=== PATIENT | male | born 1960 | race Caucasian/White ===

== ENCOUNTER 2020-05-22 11:08 | Inpatient (IN) | payer SELFPAY ==
--- NOTE | 2020-05-22 11:49 | RADIOLOGY REPORT (SQ) ---
EXAM DESCRIPTION: CHEST SINGLE VIEW IMAGES COMPLETED DATE/TIME: 05/22/2020 11:40 am REASON FOR STUDY: Shortness of breath COMPARISON: 10/15/2012. EXAM PARAMETERS: NUMBER OF VIEWS: One view. TECHNIQUE: Single frontal radiographic view of the chest acquired. RADIATION DOSE: NA LIMITATIONS: None. FINDINGS: LUNGS AND PLEURA: Developing infiltrate in the right lung. Left lung clear. MEDIASTINUM AND HILAR STRUCTURES: No masses. Contour normal. HEART AND VASCULAR STRUCTURES: Heart upper limits of normal in size. Normal vasculature. BONES: No acute findings. HARDWARE: None in the chest. OTHER: No other significant finding. IMPRESSION: DEVELOPING INFILTRATE IN THE RIGHT LUNG. TECHNICAL DOCUMENTATION: JOB ID: [id number] 2010 [employer]- All Rights Reserved Reading location - IP/workstation name: [email or web address]
[2020-05-22 12:03] LABS: ABSOLUTE BASOPHILS # (AUTO) 0.1 10^3/uL (0.0-0.2); ABSOLUTE EOSINOPHILS # (AUTO) 0.1 10^3/uL (0.0-0.6); ABSOLUTE LYMPHOCYTES (AUTO) 0.7 10^3/uL (0.5-4.7); ABSOLUTE MONOCYTES (AUTO) 0.6 10^3/uL (0.1-1.4); ABSOLUTE NEUT (AUTO) 5.7 10^3/uL (1.7-8.2); EOSINOPHILS % (AUTO) 1.6 % (0-6); HEMATOCRIT 32.1 % (37.9-51.0); HEMOGLOBIN 11.1 g/dL (13.5-17.0); MEAN CORPUSCULAR HEMOGLOBIN 29.1 pg (27.0-33.4); MEAN CORPUSCULAR HGB CONC 34.6 g/dL (32.0-36.0); MEAN CORPUSCULAR VOLUME 84 fl (80-97); MONOCYTES % (AUTO) 8.2 % (3-13); PLATELET COUNT 111 10^3/uL (150-450); RED BLOOD COUNT 3.83 10^6/uL (4.35-5.55); RED CELL DISTRIBUTION WIDTH 13.7 % (11.5-14.0); SEGMENTED NEUTROPHILS % (AUTO) 79.2 % (42-78); TOTAL CELLS COUNTED % (AUTO) 100 %; WHITE BLOOD COUNT 7.3 10^3/uL (4.0-10.5)
--- NOTE | 2020-05-22 12:22 | EKG REPORT ---
SEVERITY:- ABNORMAL ECG - SINUS RHYTHM ABNORMAL T, CONSIDER ISCHEMIA, DIFFUSE LEADS : Confirmed by: Norma Houser MD 22-May-2020 12:21:50
[2020-05-22 12:24] LABS: ALBUMIN 3.6 g/dL (3.5-5.0); ALKALINE PHOSPHATASE 60 U/L (38-126); ANION GAP 5 (5-19); ASPARTATE AMINO TRANSFERASE 22 U/L (17-59); BILIRUBIN,DIRECT 0.1 mg/dL (0.0-0.4); BILIRUBIN,TOTAL 0.7 mg/dL (0.2-1.3); BLOOD UREA NITROGEN 38 mg/dL (7-20); CALCIUM 8.4 mg/dL (8.4-10.2); CARBON DIOXIDE 28 mmol/L (22-30); CHLORIDE 97 mmol/L (98-107); GLUCOSE 98 mg/dL (75-110); POTASSIUM 4.7 mmol/L (3.6-5.0); TOTAL PROTEIN 6.5 g/dL (6.3-8.2)
[2020-05-22 13:33] LABS: ARTERIAL BLOOD BASE EXCESS -0.8 mmol/L; ARTERIAL BLOOD FIO2 2L; ARTERIAL BLOOD H2CO3 1.35 mmol/L (1.05-1.35); ARTERIAL BLOOD HCO3 24.9 mmol/L (20-24); ARTERIAL BLOOD O2 SATURATION 81.1 % (94-98); ARTERIAL BLOOD PCO2 44.9 mmHg (35-45); ARTERIAL BLOOD PH 7.36 (7.35-7.45); ARTERIAL BLOOD PO2 46.9 mmHg (80-100); ARTERIAL BLOOD TOTAL CO2 26.3 mmol/L (23-27)
[2020-05-22 13:59] LABS: APPEARANCE,URINE SLIGHTLY-CLOUDY; BILIRUBIN,URINE NEGATIVE (NEGATIVE); COLOR,URINE YELLOW; GLUCOSE, URINE NEGATIVE (NEGATIVE); KETONES,URINE NEGATIVE (NEGATIVE); LEUKOCYTE ESTERASE,URINE NEGATIVE (NEGATIVE); NITRITE,URINE NEGATIVE (NEGATIVE); PROTEIN,URINE >=500 mg/dL (NEGATIVE); URINE SPECIFIC GRAVITY 1.014; UROBILINOGEN,URINE NEGATIVE mg/dL (<2.0)
--- NOTE | 2020-05-22 15:42 | ER Document Report ---
ED General - General Chief Complaint: Shortness Of Breath Stated Complaint: SHORTNESS OF BREATH/HIP PAIN Time Seen by Provider: 05/22/20 15:07 Mode of Arrival: Ambulatory Information source: Patient Notes: This 59-year-old male presents to the emergency department with a complaint of shortness of breath and respiratory distress. Apparently EMS was called to the home because of worsening symptoms patient's O2 sat was noted to be 83% and he had increased work of breathing. He was placed on 3 L nasal cannula with improvement into the mid 90s. Patient also complains of right-sided sciatic pain which has been ongoing for a number of weeks. He also was noted to have a low-grade temperature of 99.9. Apparently he has had a history of shortness of breath for stated., Is not on home O2 does not have a history of CHF or COPD and has not been seeing a doctor for hydration in many years. Past medical history is significant for hypertension, diabetes mellitus, CAD with prior stent placement. He denies contact with known coronavirus positive individual. 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 HENT: Negative for sore throat. Eyes: Negative for visual changes. Cardiovascular: Negative for chest pain. Respiratory: + shortness of breath. Gastrointestinal: Negative for abdominal pain, vomiting or diarrhea. Genitourinary: Negative for dysuria. Musculoskeletal: see HPI Skin: Negative for rash. Neurological: Negative for headaches, weakness or numbness. 10 point ROS negative except as marked above and in HPI. Physical Exam - Vital signs Vitals: Temp 99.3 F 05/22/20 11:08 - Notes Notes: PHYSICAL EXAMINATION: Physical Exam: General: Well-nourished well-developed 59-year-old man, positive ncreased work to breathe. HEENT: NC/AT, pupils equal round and reactive to light, MM moist,nares clear, oropharynx clear, airway patent Neck: supple, no adenopathy, no masses. Good range of motion Lungs: Good air movement increased work to breathe, basilar coarse sounds. CVS: Regular rate and rhythm no murmur gallop or rub Abdomen: Soft, active, nontender, no masses, no hepatosplenomegaly Ext: No edema, clubbing or cyanosis. Neuro: Alert and responsive, moving all 4 extremities on command, cranial nerves intact, no focal findings Skin: Intact no open lesions, no rash PSYCH: Normal mood, normal affect. Course - Re-evaluation Re-evalutation: 05/22/20 16:45 I discussed the findings of the x-ray and also the labs with the patient and explained to him that he should stay in the hospital for treatment. Given his low oxygen level his cigarette smoking history is question whether he has chronic obstructive lung disease and will need possible home O2. Given his infiltrate is being treated for community acquired pneumonia. Rocephin and Zithromax are ordered. The patient was not febrile but his temperature was elevated to 99.3 - coronavirus test and negative influenza testing makes the infiltrate likely related to community-acquired pneumonia. The elevated creatinine may be chronic, however we have no prior values other than 2012. He is given IV fluids and close monitoring of the renal function will be maintained while he is hospitalized. He does not have a primary care doctor and some ou tpatient follow-up will be needed at the time of discharge. 05/22/20 16:47 Discussed the patient with the hospitalist service, Komal Chi nurse practitioner will admit the patient to the hospitalist service for further management. - Vital Signs Vital signs: Temp Pulse Resp BP Pulse Ox 98.2 F 92 20 139/66 H 99 05/23/20 03:25 05/23/20 03:25 05/23/20 03:25 05/23/20 03:25 05/23/20 03:25 - Laboratory Results Result Diagrams: 05/23/20 05:53 05/23/20 05:53 Laboratory Results Interpreted: 05/22/20 05/22/20 05/22/20 11:47 11:47 11:47 RBC 3.83 L Hgb 11.1 L Hct 32.1 L Plt Count 111 L Lymph % (Auto) 10.0 L Seg Neutrophils % 79.2 H D-Dimer 1.49 H ABG pO2 ABG HCO3 ABG O2 Saturation Sodium 130.2 L Chloride 97 L BUN 38 H Creatinine 2.28 H Est GFR ( Amer) 36 L Est GFR (MDRD) Non-Af 30 L NT-Pro-B Natriuret Pep Urine Protein Urine Blood 05/22/20 05/22/20 05/22/20 11:47 13:12 13:26 RBC Hgb Hct Plt Count Lymph % (Auto) Seg Neutrophils % D-Dimer ABG pO2 46.9 L ABG HCO3 24.9 H ABG O2 Saturation 81.1 L Sodium Chloride BUN Creatinine Est GFR ( Amer) Est GFR (MDRD) Non-Af NT-Pro-B Natriuret Pep 1600 H Urine Protein >=500 H Urine Blood MODERATE H 05/22/20 16:26 I have reviewed laboratory data and used this information for the treatment decisions regarding the patient. Critical Laboratory Results Reviewed: Yes - Elevated BUN/creatinine Attending or Supervising Physician who Reviewed Labs: JUANCARLOS VASQUEZ - Radiology Results Radiology Results Interpreted: 05/22/20 16:26 Chest X-Ray 05/22/20 11:12 IMPRESSION: DEVELOPING INFILTRATE IN THE RIGHT LUNG. Critical Radiology Results Reviewed: No Critical Results - EKG Interpretation by Or Rate: Normal - EKG interpreted by Dr. Vasquez: Normal sinus rhythm, rate 91, NV interval 76 ms QT interval 364 ms, normal axis, T wave inversion V5, V6, no ischemic findings, compared to EKG dated 10/2012, T wave inversions in V5 V6 are new. Interpretation Abnormal EKG Critical Care Note - Critical Care Note Total time excluding time spent on procedures (mins): 45 - Critical care time spent obtaining history from patient or surrogate, discussions with consultants, development of treatment plan with patient or surrogate, evaluation of patient's response to treatment, examination of patient, ordering and performing treatments and interventions, ordering and review of laboratory studies, re- evaluation of patient's condition, ordering and review of radiographic studies and review of old charts Discharge - Discharge Clinical Impression: JANETTE (acute kidney injury) Sciatica Qualifiers: Laterality: right Qualified Code(s): M54.31 - Sciatica, right side CAP (community acquired pneumonia) Qualifiers: Laterality: right Lung location: unspecified part of lung Qualified Code(s): J18.9 - Pneumonia, unspecified organism Condition: Good Disposition: ADMITTED INPATIENT Admitting Provider: Jessica (Hospitalist) Unit Admitted: Medical Floor
[2020-05-22] MEDS ORDERED: NORMAL SALINE 1000 ML 1,000 ML IV ONE (15:46)
[2020-05-22] MEDS ORDERED: LORAZEPAM INJ 2 MG/1 ML VIAL IV ONE (15:49)
[2020-05-22] MEDS ORDERED: HYDROMORPHONE HCL INJ/PF 2 MG/ML AMPULE IV ONE (15:50)
[2020-05-22] MEDS ORDERED: DEXAMETHASONE SOD PHOS INJ 10 MG/1 ML VIAL IV ONE (15:50)
[2020-05-22] MEDS ORDERED: AZITHROMYCIN 250 MG TABLET PO ONE (16:27)
[2020-05-22] MEDS ORDERED: CEFTRIAXONE INJ 1000 MG VIAL IV ONE (16:27)
[2020-05-22] MEDS ORDERED: IPRATROPIUM/ALBUTEROL 0.5-2.5 MG/3 ML AMPUL NEB ONE (16:28)
[2020-05-22] MEDS ORDERED: MAG HYDROX/AL HYDROX/SIMETH SUSP 30 ML UDCUP PO PRN (17:30)
[2020-05-22] MEDS ORDERED: FUROSEMIDE INJ/PF 40 MG/4 ML SDV IV ONE (17:30)
[2020-05-22] MEDS ORDERED: PROMETHAZINE HCL INJ 25 MG/1 ML VIAL IV PRN (17:30)
[2020-05-22] MEDS ORDERED: IPRATROPIUM/ALBUTEROL 0.5-2.5 MG/3 ML AMPUL NEB PRN (17:30)
[2020-05-22] MEDS ORDERED: ACETAMINOPHEN 325 MG TABLET PO PRN (17:30)
[2020-05-22] MEDS ORDERED: DEXTROSE 50%-WATER 25 GM/50 ML DISP.SYRIN IV PRN ×2 (17:35)
[2020-05-22] MEDS ORDERED: DEXTROSE 40% GEL 15 GM TUBE PO PRN ×2 (17:35)
[2020-05-22] MEDS ORDERED: GLUCAGON,HUMAN RECOMB 1 MG INJ IM PRN (17:35)
[2020-05-22] MEDS ORDERED: NICOTINE 21 MG/24 HR PATCH.TD24 TD ONE (18:15)
--- NOTE | 2020-05-22 18:20 | PDOC H&P ---
History of Present Illness Admission Date/PCP: 05/22/20 16:50 DAPHNIE BUSTAMANTE Patient complains of: right hip pain History of Present Illness: LIZETTE MUNIZ is a 59 year old male with a limited past medical history secondary to poor historian and poor healthcare utilization but from prior records known to have [place], cardiac cath with 1 stent, hypertension, diabetes mellitus, obesity, and tobacco dependence with continuous use who presented to the emergency department today via EMS with a complaint of right hip pain. Upon EMS arrival, they had found the patient hypoxic with an SPO2 of 83 on room air. Patient's reported that he had a sudden onset of shortness of breath and increased work of breathing today. On arrival to the emergency department, the patient denied all cold-like symptoms and stated that his current respiratory pattern was Chronic in nature and that his only complaint was right hip pain. Evaluation in the emergency department revealed low-grade temp of 99.3, mild tachycardia (HR 97), tachypnea (RR 24), and hypoxia on room air. CBC revealed hemoglobin 11.1, chemistry was notable for mild hyponatremia (130.2), acute renal insufficiency (creatinine 2.28, BUN 38), and urinalysis positive for blood and protein. ABG was notable for PaO2 of 46.9 while on 2 L/min via nasal cannula. Rapid Covid/influenza/RSV was negative. Chest x-ray showed a developing right lung opacity. Therefore, patient was provided 1 L normal saline, IV ceftriaxone and azithromycin for treatment of a community-acquired pneumonia. He was recommended for admission. The patient voiced interest in leaving AGAINST MEDICAL ADVICE and per nursing notes actually removed his IV and ambulated to the waiting room. He was encouraged to return to his room, and per nursing, agreed to stay. He was then medicated with IV Dilaudid and Ativan. Therefore at the time of my assessment, the patient was arousable to voice and tactile stimulation, able to confirm his name, place, and year but quickly would fall back to sleep and could not provide any further meaningful information. I did attempt to call his at the phone number listed in [employer] but there was no answer. Past Medical History Past Medical History: Health history limited as patient is currently sedated and unable to provide further information. Their was no answer at his home when attempted to call his . Cardiac Medical History: Reports: Myocardial Infarction, Hypertension Endocrine Medical History: Reports: Diabetes Mellitus Type 2, Obesity Musculoskeltal Medical History: Reports: Arthritis Psychiatric Medical History: Reports: Tobacco Dependency Past Surgical History Past Surgical History: Reports: Cardiac Catheterization, Coronary Stent Social History Information Source: Emergency Med Personnel, [facility] Records Lives with: Spouse/Significant other Smoking Status: Current Every Day Smoker Electronic Cigarette use?: No - Advance Directive Resuscitation Status: Full Code Family History Family History: Reviewed & Not Pertinent, Other - unable to obtain Parental Family History Reviewed: No - unable to obtain Children Family History Reviewed: Unknown Sibling(s) Family History Reviewed.: Unknown Medication/Allergy Home Medications: Albuterol Sulfate [Ventolin HFA] 2 puff IH Q4HP PRN #17 gm 10/15/12 Aspirin [Aspirin 81 mg Chewable Tablet] 81 mg PO DAILY 10/15/12 Insulin Glargine,Hum.rec.anlog [Lantus Insulin 100 Unit/mL] 20 unit SUBCUT QHS #10 ml 10/15/12 Lisinopril 5 mg PO DAILY #30 tablet 10/15/12 Metoprolol Tartrate [Lopressor 50 mg Tablet] 50 mg PO Q12H #60 tablet 10/15/12 Allergies/Adverse Reactions: No Known Allergies Allergy (Unverified 10/15/12 14:02) Review of Systems ROS unobtainable: Due to mental status Respiratory: PRESENT: dyspnea Musculoskeletal: PRESENT: other - right hip pain Physical Exam Vital Signs: Temp Pulse Resp BP Pulse Ox 99.3 F 92 21 H 104/90 H 97 05/22/20 11:23 05/22/20 11:23 05/22/20 13:01 05/22/20 13:01 05/22/20 13:01 Intake & Output 05/21/20 05/22/20 05/23/20 06:59 06:59 06:59 Intake Total 1000 Balance 1000 Weight 100.6 kg General appearance: PRESENT: mild distress, obese, well-developed, well- nourished Head exam: PRESENT: atraumatic, normocephalic Eye exam: PRESENT: conjunctiva pink, EOMI, PERRLA. ABSENT: scleral icterus Mouth exam: PRESENT: moist, tongue midline Neck exam: PRESENT: JVD. ABSENT: carotid bruit, lymphadenopathy, thyromegaly Respiratory exam: PRESENT: crackles - bibasilar, tachypnea, other - supplemental oxygen. ABSENT: rales, rhonchi, wheezes Cardiovascular exam: PRESENT: RRR, +S1, +S2. ABSENT: diastolic murmur, rubs, systolic murmur Pulses: PRESENT: normal dorsalis pedis pul Vascular exam: PRESENT: normal capillary refill GI/Abdominal exam: PRESENT: normal bowel sounds, soft. ABSENT: distended, guarding, mass, organolmegaly, rebound, tenderness Rectal exam: PRESENT: deferred Extremities exam: PRESENT: full ROM - moves all extremities spontaneously, +2 e yaw - pitting BLE. ABSENT: calf tenderness, clubbing, pedal edema Neurological exam: PRESENT: alert, oriented to person, oriented to place, oriented to time, oriented to situation, CN II-XII grossly intact, other - somnulent r/t recent medication administration. ABSENT: motor sensory deficit Skin exam: PRESENT: dry, intact, warm. ABSENT: cyanosis, rash Results Laboratory Results: 05/22/20 11:47 05/22/20 11:47 05/22/20 05/22/20 05/22/20 11:47 11:47 13:12 WBC 7.3 RBC 3.83 L Hgb 11.1 L Hct 32.1 L MCV 84 MCH 29.1 MCHC 34.6 RDW 13.7 Plt Count 111 L Seg Neutrophils % 79.2 H Carbonic Acid 1.35 HCO3/H2CO3 Ratio 18:1 ABG pH 7.36 ABG pCO2 44.9 ABG pO2 46.9 L ABG HCO3 24.9 H ABG O2 Saturation 81.1 L ABG Base Excess -0.8 FiO2 2L Sodium 130.2 L Potassium 4.7 Chloride 97 L Carbon Dioxide 28 Anion Gap 5 BUN 38 H Creatinine 2.28 H Est GFR ( Amer) 36 L Glucose 98 Calcium 8.4 Total Bilirubin 0.7 AST 22 Alkaline Phosphatase 60 Total Protein 6.5 Albumin 3.6 Urine Color Urine Appearance Urine pH Ur Specific [place] Urine Protein Urine Glucose (UA) Urine Ketones Urine Blood Urine Nitrite Ur Leukocyte Esterase Urine WBC (Auto) Urine RBC (Auto) 05/22/20 13:26 WBC RBC Hgb Hct MCV MCH MCHC RDW Plt Count Seg Neutrophils % Carbonic Acid HCO3/H2CO3 Ratio ABG pH ABG pCO2 ABG pO2 ABG HCO3 ABG O2 Saturation ABG Base Excess FiO2 Sodium Potassium Chloride Carbon Dioxide Anion Gap BUN Creatinine Est GFR ( Amer) Glucose Calcium Total Bilirubin AST Alkaline Phosphatase Total Protein Albumin Urine Color YELLOW Urine Appearance SLIGHTLY-CLOUDY Urine pH 5.0 Ur Specific [place] 1.014 Urine Protein >=500 H Urine Glucose (UA) NEGATIVE Urine Ketones NEGATIVE Urine Blood MODERATE H Urine Nitrite NEGATIVE Ur Leukocyte Esterase NEGATIVE Urine WBC (Auto) 2 Urine RBC (Auto) 16 Impressions: Chest X-Ray 05/22/20 11:12 IMPRESSION: DEVELOPING INFILTRATE IN THE RIGHT LUNG. Assessment and Plan - Diagnosis (1) CHF (congestive heart failure) Qualifiers: Heart failure type: unspecified Heart failure chronicity: acute Qualified Code(s): I50.9 - Heart failure, unspecified Is this a current diagnosis for this admission?: Yes Plan: Limited PMH; known to have had an [place] with cardiac cath and stent x1. Presented with respiratory distress, hypoxia, tachycardia, hypertension, tachyp keyonna, +3 pitting edema BLE, bilateral crackles, and JVD. Troponin 0.128 proBNP 1600 D.dimer elevated; can't have CTA r/t JANETTE. CXR shows developing right side opacity. Chest CT pending. EKG is sinus rhythm with t wave changes; no ST segment changes, heart block, or other acute/worrisome changes. Echocardiogram pending Patient is admitted to [facility] on continuous cardiac telemetry. Discussed case w/ Dr. Gonzáles. Will diurese with IV furosemide. Start Toprol XL Will need [place] vs ARB vs Entresto once renal function improves. Start daily aspirin and statin therapy. On full dose Lovenox secondary to elevated D-dimer and troponin pending further cardiac evaluation. Cardiac diet; fluid restricted 1200 mL daily. Daily weights, strict I&O's. Low threshold for cardiology consultation. (2) Acute respiratory failure with hypoxia Is this a current diagnosis for this admission?: Yes Plan: Secondary to CHF exacerbation. Less likely community acquired pneumonia. COVID negative. D. dimer is elevated, unfortunately, can not get CTA r/t renal function. Patient currently unable to participate in VQ scan. Will consider f/u imagining pending patient's mentation in AM and echo results. ABG shows hypoxia (paO2 46.9 on 2lpm). Echocardiogram pending CT Chest pending. Supplemental oxygen and CPAP as needed to maintain saturations >89% As needed Duonebs. Will treat w/ full dose Lovenox given patient's elevated d. dimer and troponin (once Head CT is completed). Avoid sedating medications in patient with hypoxia. Remaining management as above. (3) JANETTE (acute kidney injury) Is this a current diagnosis for this admission?: Yes Plan: Patient appears volume overloaded. Likely secondary to acute CHF exacerbation with decreased cardiac output. We will cautiously diurese with IV furosemide. Otherwise avoid nephrotoxic medications and renally dose were able. Follow-up chemistries. (4) Obesity (BMI 30-39.9) Is this a current diagnosis for this admission?: Yes Plan: Once alert, patient will be placed on consistent carb/cardiac diet. Dietary discretion and lifestyle modification will be encouraged. (5) Tobacco dependence Is this a current diagnosis for this admission?: Yes Plan: Nicotine replacement therapies provided. (6) Altered mental status Qualifiers: Altered mental status type: delirium Qualified Code(s): R41.0 - Disorientation, unspecified Is this a current diagnosis for this admission?: Yes Plan: Likely secondary to hypoxia and decreased cardiac output. Nursing reports that while patient was A&Ox4, he had an od affect, was forgetful, with bizarre behaviors and poor safety awareness. Evaluation and management of respiratory failure and CHF as above. Head CT pending. Supportive care. Fall precautions. - Time Time Spent with patient: 35 or more minutes Medications reviewed and adjusted accordingly: Yes Anticipated Discharge Disposition: Home, Self Care Anticipated Discharge Timeframe: TBD - Inpatient Certification Based on my medical assessment, after consideration of the patient's comorbidities, presenting symptoms, or acuity I expect that the services needed warrant INPATIENT care.: Yes I certify that my determination is in accordance with my understanding of Medicare's requirements for reasonable and necessary INPATIENT services [42 CFR 412.3e].: Yes Medical Necessity: Need Close Monitoring Due to Risk of Patient Decompensation, Need For Continuous Telemetry Monitoring, Risk of Complication if Not Cared For in Hospital
--- NOTE | 2020-05-22 18:21 | RADIOLOGY REPORT (SQ) ---
EXAM DESCRIPTION: CT HEAD WITHOUT IMAGES COMPLETED DATE/TIME: 05/22/2020 5:34 pm REASON FOR STUDY: ams COMPARISON: None. TECHNIQUE: Axial images acquired through the brain without intravenous contrast. Images reviewed wi th bone, brain and subdural windows. Additional sagittal and coronal reconstructions were generated. Images stored on PACS. All CT scanners at this facility use dose modulation, iterative reconstruction, and/or weight based d osing when appropriate to reduce radiation dose to as low as reasonably achievable (ALARA). [facility]: Dose Right [facility]: CareDose [facility]: Dose Right [facility]: Teradose 4D [facility]: [employer] RADIATION DOSE: CT Rad equipment meets quality standard of care and radiation dose reduction techniq ues were employed. CTDIvol: 48.8 mGy. DLP: 860 mGy-cm. mGy. LIMITATIONS: None. FINDINGS: VENTRICLES: Normal size and contour. CEREBRUM: No masses. No hemorrhage. No midline shift. No evidence for acute infarction. Normal gra y/white matter differentiation. No areas of low density in the white matter. CEREBELLUM: No masses. No hemorrhage. No alteration of density. No evidence for acute infarction. EXTRAAXIAL SPACES: No fluid collections. No masses. ORBITS AND GLOBE: No intra- or extraconal masses. Normal contour of globe without masses. CALVARIUM: No fracture. PARANASAL SINUSES: No fluid or mucosal thickening. SOFT TISSUES: No mass or hematoma. OTHER: No other significant finding. IMPRESSION: NORMAL BRAIN CT WITHOUT CONTRAST. EVIDENCE OF ACUTE STROKE: NO. COMMENT: Quality ID # [id number]: Final reports with documentation of one or more dose reduction techniques (e.g., Automated exposure control, adjustment of the mA and/or kV according to patient size, use of iterative reconstruction technique) TECHNICAL DOCUMENTATION: JOB ID: [id number] 2010 [employer]- All Rights Reserved Reading location - IP/workstation name: [email or web address]
--- NOTE | 2020-05-22 18:28 | RADIOLOGY REPORT (SQ) ---
EXAM DESCRIPTION: CT CHEST WITHOUT IMAGES COMPLETED DATE/TIME: 05/22/2020 5:34 pm REASON FOR STUDY: ams; hypoxia COMPARISON: Chest x-ray dated 05/22/2020. TECHNIQUE: CT scan performed of the chest without intravenous contrast. Images reviewed with lung, soft tissue and bone windows. Reconstructed coronal and sagittal MPR images reviewed. All images st ored on PACS. All CT scanners at this facility use dose modulation, iterative reconstruction, and/or weight based d osing when appropriate to reduce radiation dose to as low as reasonably achievable (ALARA). [facility]: Dose Right [facility]: CareDose [facility]: Dose Right [facility]: Teradose 4D [facility]: [employer] RADIATION DOSE: CT Rad equipment meets quality standard of care and radiation dose reduction techniq ues were employed. CTDIvol: 18.9 mGy. DLP: 688 mGy-cm. mGy. LIMITATIONS: No technical limitations. FINDINGS: LUNGS AND PLEURA: Extensive ground-glass opacities throughout both lungs. Small pleural e ffusions. HILAR AND MEDIASTINAL STRUCTURES: No identified masses or abnormal nodes. No obvious aneurysm. HEART AND VASCULAR STRUCTURES: No aneurysm. No pericardial effusion. UPPER ABDOMEN: No significant findings. Limited exam. THYROID AND OTHER SOFT TISSUES: No masses. No adenopathy. BONES: No significant finding. HARDWARE: None in the chest. OTHER: No other significant findings. IMPRESSION: EXTENSIVE GROUND-GLASS OPACITIES THROUGHOUT BOTH LUNGS CONCERNING FOR PNEUMONIA, POSSIBL Y COVID- 19. SMALL PLEURAL EFFUSIONS. TECHNICAL DOCUMENTATION: JOB ID: [id number] Quality ID # [id number]: Final reports with documentation of one or more dose reduction techniques (e.g., Au tomated exposure control, adjustment of the mA and/or kV according to patient size, use of iterative reconstruction technique) 2010 [employer]- All Rights Reserved Reading location - IP/workstation name: [email or web address]
[2020-05-22 18:58] LABS: BLOOD UREA NITROGEN 37 mg/dL (7-20); C-REACTIVE PROTEIN 30.9 mg/L (<10.0); CALCIUM 8.3 mg/dL (8.4-10.2); CREATINE KINASE 351 U/L (55-170); GLUCOSE 111 mg/dL (75-110); POTASSIUM 4.6 mmol/L (3.6-5.0)
[2020-05-22 19:01] LABS: CARBON DIOXIDE 30 mmol/L (22-30); CHLORIDE 99 mmol/L (98-107)
[2020-05-22 19:04] LABS: ANION GAP 3 (5-19)
[2020-05-22] MEDS ORDERED: ENOXAPARIN SODIUM INJ 100 MG/1 ML DISP.SYRIN SUBCUT SCH (22:00)
[2020-05-22] MEDS ORDERED: ATORVASTATIN CALCIUM 20 MG TABLET PO SCH (22:00)
[2020-05-22] MEDS: ASPIRIN 81 MG TABLET, CHEWABLE PO SCH (22:06)
[2020-05-22] MEDS: INSULIN LISPRO 100 UNIT/ML 3 ML VIAL SUBCUT SCH (22:07)
[2020-05-23 06:21] LABS: HEMATOCRIT 29.5 % (37.9-51.0); HEMOGLOBIN 10.2 g/dL (13.5-17.0); MEAN CORPUSCULAR HEMOGLOBIN 29.3 pg (27.0-33.4); MEAN CORPUSCULAR HGB CONC 34.5 g/dL (32.0-36.0); MEAN CORPUSCULAR VOLUME 85 fl (80-97); PLATELET COUNT 104 10^3/uL (150-450); RED BLOOD COUNT 3.47 10^6/uL (4.35-5.55); RED CELL DISTRIBUTION WIDTH 13.9 % (11.5-14.0)
[2020-05-23 06:58] LABS: ANION GAP 12 (5-19); BLOOD UREA NITROGEN 45 mg/dL (7-20); CALCIUM 8.5 mg/dL (8.4-10.2); CARBON DIOXIDE 21 mmol/L (22-30); CHLORIDE 101 mmol/L (98-107); CHOLESTEROL 111.97 mg/dL (0-200); GLUCOSE 250 mg/dL (75-110); POTASSIUM 4.7 mmol/L (3.6-5.0); TRIGLYCERIDES 62 mg/dL (<150)
[2020-05-23 07:09] LABS: DIRECT LDL 53 mg/dL (<100)
--- NOTE | 2020-05-23 08:37 | PDOC CONSULTATION ---
Consultation Consult Date: 05/23/20 Attending physician:: CHARLES BAJWA Provider Consulted: JOHANNY PEARSON Consult reason:: HF History of Present Illness Admission Date/PCP: 05/22/20 16:50 DAPHNIE BUSTAMANTE History of Present Illness: LIZETTE MUNIZ is a 59 year old male with history of coronary artery disease status post OH in 2006 treated with a stent to an unknown vessel at [facility], hypertension, diabetes, obesity and ongoing tobacco use with 2 packs/day for the last 30 to 40 years who is consulted to our service for evaluation of elevated troponin and suspected heart failure. EMS was initially called to his home due to hip pain however he was found to be hypoxic with a pulse ox of 83% on room air as well as increased work of breathing. In the emergency room his temperature was mildly elevated to 99.3 among other findings. His chest x-ray was concerning for a developing pneumonia and CT scan of the chest revealed extensive, bilateral ground glass appearance concerning for COVID-19 pneumonia as well as small pleural effusions. Of note, the patient tested negative for COVID-19. He also had mildly elevated cardiac troponins which are now downtrending and peaked at 0.319. His telemetry shows normal sinus rhythm. This morning he feels better and has no cardiovascular complaints. He is anxious to go home. Physical exam on 05/23/2020: GENERAL: Pleasant and conversational. Oriented x3 with normal mood. Not in acute distress. Well groomed and well developed. HEENT: Normocephalic, atraumatic. Pupils equal. Sclerae anicteric. Oropharynx moist. NECK: No JVD. No carotid bruits. LUNGS: Decreased breath sounds bilaterally, very faint Rales at bases bilaterally. Normal respiratory effort without the use of accessory muscles or intercostal retractions. CARDIOVASCULAR: Regular rate and rhythm, normal S1 and S2 without murmurs, rubs, or gallops. PMI not displaced. ABDOMEN: No masses or tenderness to palpation. No bruit. No splenomegaly or hepatomegaly. No abdominal aorta bruit noted. EXTREMITIES: No edema, no cyanosis, no clubbing. +2 pulses femoral and pedal pulses bilaterally. SKIN: No lesions or rashes. MUSCULOSKELETAL: No chest tenderness to palpation. NEUROLOGIC: Nonfocal. No gross sensory or motor deficits bilateral upper or lower extremities. Past Medical History Cardiac Medical History: Reports: Myocardial Infarction, Hypertension Endocrine Medical History: Reports: Diabetes Mellitus Type 2, Obesity Musculoskeltal Medical History: Reports: Arthritis Psychiatric Medical History: Reports: Tobacco Dependency Denies: Depression Past Surgical History Past Surgical History: Reports: Cardiac Catheterization, Coronary Stent Social History Lives with: Spouse/Significant other Smoking Status: Current Every Day Smoker Cigarettes Packs Per Day: 2 Electronic Cigarette use?: No Last Time Smoked: 05/22/2020 Frequency of Alcohol Use: Heavy Drugs: None - Advance Directive Resuscitation Status: Full Code Family History Family History: Reviewed & Not Pertinent, Other - unable to obtain Parental Family History Reviewed: Yes Children Family History Reviewed: Yes Sibling(s) Family History Reviewed.: Yes Medication/Allergy Home Medications: Albuterol Sulfate [Ventolin HFA] 2 puff IH Q4HP PRN #17 gm 10/15/12 Aspirin [Aspirin 81 mg Chewable Tablet] 81 mg PO DAILY 10/15/12 Insulin Glargine,Hum.rec.anlog [Lantus Insulin 100 Unit/mL] 20 unit SUBCUT QHS #10 ml 10/15/12 Lisinopril 5 mg PO DAILY #30 tablet 10/15/12 Metoprolol Tartrate [Lopressor 50 mg Tablet] 50 mg PO Q12H #60 tablet 10/15/12 Allergies/Adverse Reactions: No Known Allergies Allergy (Unverified 10/15/12 14:02) Physical Exam Vital Signs: Temp Pulse Resp BP Pulse Ox 98.2 F 92 20 139/66 H 99 05/23/20 03:25 05/23/20 03:25 05/23/20 03:25 05/23/20 03:25 05/23/20 03:25 Intake & Output 05/22/20 05/23/20 05/24/20 06:59 06:59 06:59 Intake Total 1000 Balance 1000 Weight 101.2 kg Results Laboratory Results: 05/23/20 05:53 05/23/20 05:53 05/22/20 05/22/20 05/22/20 11:47 11:47 13:12 WBC 7.3 RBC 3.83 L Hgb 11.1 L Hct 32.1 L MCV 84 MCH 29.1 MCHC 34.6 RDW 13.7 Plt Count 111 L Seg Neutrophils % 79.2 H Carbonic Acid 1.35 HCO3/H2CO3 Ratio 18:1 ABG pH 7.36 ABG pCO2 44.9 ABG pO2 46.9 L ABG HCO3 24.9 H ABG O2 Saturation 81.1 L ABG Base Excess -0.8 FiO2 2L Sodium 130.2 L Potassium 4.7 Chloride 97 L Carbon Dioxide 28 Anion Gap 5 BUN 38 H Creatinine 2.28 H Est GFR ( Amer) 36 L Glucose 98 Calcium 8.4 Ferritin Total Bilirubin 0.7 AST 22 Alkaline Phosphatase 60 C-Reactive Protein Total Protein 6.5 Albumin 3.6 Triglycerides Cholesterol LDL Cholesterol Direct VLDL Cholesterol HDL Cholesterol TSH Urine Color Urine Appearance Urine pH Ur Specific [place] Urine Protein Urine Glucose (UA) Urine Ketones Urine Blood Urine Nitrite Ur Leukocyte Esterase Urine WBC (Auto) Urine RBC (Auto) 05/22/20 05/22/20 05/23/20 13:26 18:08 05:53 WBC RBC Hgb Hct MCV MCH MCHC RDW Plt Count Seg Neutrophils % Carbonic Acid HCO3/H2CO3 Ratio ABG pH ABG pCO2 ABG pO2 ABG HCO3 ABG O2 Saturation ABG Base Excess FiO2 Sodium 132.4 L 133.6 L Potassium 4.6 4.7 Chloride 99 101 Carbon Dioxide 30 21 L Anion Gap 3 L 12 BUN 37 H 45 H Creatinine 2.29 H 2.13 H Est GFR ( Amer) 36 L 39 L Glucose 111 H 250 H Calcium 8.3 L 8.5 Ferritin 103.00 Total Bilirubin AST Alkaline Phosphatase C-Reactive Protein 30.9 H Total Protein Albumin Triglycerides 62 Cholesterol 111.97 LDL Cholesterol Direct 53 VLDL Cholesterol 12.0 HDL Cholesterol 45 TSH Urine Color YELLOW Urine Appearance SLIGHTLY-CLOUDY Urine pH 5.0 Ur Specific [place] 1.014 Urine Protein >=500 H Urine Glucose (UA) NEGATIVE Urine Ketones NEGATIVE Urine Blood MODERATE H Urine Nitrite NEGATIVE Ur Leukocyte Esterase NEGATIVE Urine WBC (Auto) 2 Urine RBC (Auto) 16 05/23/20 05/23/20 05:53 05:53 WBC 5.0 RBC 3.47 L Hgb 10.2 L Hct 29.5 L MCV 85 MCH 29.3 MCHC 34.5 RDW 13.9 Plt Count 104 L Seg Neutrophils % Carbonic Acid HCO3/H2CO3 Ratio ABG pH ABG pCO2 ABG pO2 ABG HCO3 ABG O2 Saturation ABG Base Excess FiO2 Sodium Potassium Chloride Carbon Dioxide Anion Gap BUN Creatinine Est GFR ( Amer) Glucose Calcium Ferritin Total Bilirubin AST Alkaline Phosphatase C-Reactive Protein Total Protein Albumin Triglycerides Cholesterol LDL Cholesterol Direct VLDL Cholesterol HDL Cholesterol TSH 0.39 L Urine Color Urine Appearance Urine pH Ur Specific [place] Urine Protein Urine Glucose (UA) Urine Ketones Urine Blood Urine Nitrite Ur Leukocyte Esterase Urine WBC (Auto) Urine RBC (Auto) 05/22/20 05/22/20 05/22/20 11:47 11:47 18:08 Creatine Kinase 351 H Troponin I 0.128 NT-Pro-B Natriuret Pep 1600 H 05/23/20 05/23/20 01:10 05:53 Creatine Kinase Troponin I 0.319 0.229 NT-Pro-B Natriuret Pep Impressions: Chest CT 05/22/20 00:00 IMPRESSION: EXTENSIVE GROUND-GLASS OPACITIES THROUGHOUT BOTH LUNGS CONCERNING FOR PNEUMONIA, POSSIBLY COVID- 19. SMALL PLEURAL EFFUSIONS. Head CT 05/22/20 00:00 IMPRESSION: NORMAL BRAIN CT WITHOUT CONTRAST. EVIDENCE OF ACUTE STROKE: NO. Chest X-Ray 05/22/20 11:12 IMPRESSION: DEVELOPING INFILTRATE IN THE RIGHT LUNG. 05/23/20 05:53 05/23/20 05:53 MCV 85 fl (80-97) 05/23/20 05:53 MCH 29.3 pg (27.0-33.4) 05/23/20 05:53 MCHC 34.5 g/dL (32.0-36.0) 05/23/20 05:53 RDW 13.9 % (11.5-14.0) 05/23/20 05:53 Seg Neutrophils % 79.2 % (42-78) H 05/22/20 11:47 Carbonic Acid 1.35 mmol/L (1.05-1.35) 05/22/20 13:12 HCO3/H2CO3 Ratio 18:1 05/22/20 13:12 ABG pH 7.36 (7.35-7.45) 05/22/20 13:12 ABG pCO2 44.9 mmHg (35-45) 05/22/20 13:12 ABG pO2 46.9 mmHg (80-100) L 05/22/20 13:12 ABG HCO3 24.9 mmol/L (20-24) H 05/22/20 13:12 ABG O2 Saturation 81.1 % (94-98) L 05/22/20 13:12 ABG Base Excess -0.8 mmol/L 05/22/20 13:12 FiO2 2L 05/22/20 13:12 Chloride 101 mmol/L (98-107) 05/23/20 05:53 Carbon Dioxide 21 mmol/L (22-30) L 05/23/20 05:53 Anion Gap 12 (5-19) 05/23/20 05:53 Est GFR ( Amer) 39 (>60) L 05/23/20 05:53 Glucose 250 mg/dL (75-110) H 05/23/20 05:53 Calcium 8.5 mg/dL (8.4-10.2) 05/23/20 05:53 Ferritin 103.00 ng/mL (17.9-464.0) 05/22/20 18:08 Total Bilirubin 0.7 mg/dL (0.2-1.3) 05/22/20 11:47 AST 22 U/L (17-59) 05/22/20 11:47 Alkaline Phosphatase 60 U/L (38-126) 05/22/20 11:47 C-Reactive Protein 30.9 mg/L (<10.0) H 05/22/20 18:08 Total Protein 6.5 g/dL (6.3-8.2) 05/22/20 11:47 Albumin 3.6 g/dL (3.5-5.0) 05/22/20 11:47 Triglycerides 62 mg/dL (<150) 05/23/20 05:53 Cholesterol 111.97 mg/dL (0-200) 05/23/20 05:53 LDL Cholesterol Direct 53 mg/dL (<100) 05/23/20 05:53 VLDL Cholesterol 12.0 mg/dL (10-31) 05/23/20 05:53 HDL Cholesterol 45 mg/dL (>40) 05/23/20 05:53 TSH 0.39 uIU/mL (0.47-4.68) L 05/23/20 05:53 Urine Color YELLOW 05/22/20 13:26 Urine Appearance SLIGHTLY-CLOUDY 05/22/20 13:26 Urine pH 5.0 (5.0-9.0) 05/22/20 13:26 Ur Specific [place] 1.014 05/22/20 13:26 Urine Protein >=500 mg/dL (NEGATIVE) H 05/22/20 13:26 Urine Glucose (UA) NEGATIVE mg/dL (NEGATIVE) 05/22/20 13:26 Urine Ketones NEGATIVE mg/dL (NEGATIVE) 05/22/20 13:26 Urine Blood MODERATE (NEGATIVE) H 05/22/20 13:26 Urine Nitrite NEGATIVE (NEGATIVE) 05/22/20 13:26 Ur Leukocyte Esterase NEGATIVE (NEGATIVE) 05/22/20 13:26 Urine WBC (Auto) 2 /HPF 05/22/20 13:26 Urine RBC (Auto) 16 /HPF 05/22/20 13:26 05/22/20 05/22/20 05/22/20 11:47 11:47 18:08 Creatine Kinase 351 H Troponin I 0.128 NT-Pro-B Natriuret Pep 1600 H 05/23/20 05/23/20 01:10 05:53 Creatine Kinase Troponin I 0.319 0.229 NT-Pro-B Natriuret Pep Current Medication List Generic Name Dose Route Start Last Admin Trade Name Freq PRN Reason Stop Dose Admin Acetaminophen 650 mg 05/22/20 17:30 Acetaminophen 325 Mg Tablet PO 06/21/20 17:29 Q4HP PRN FOR PAIN OR TEMP Al Hydrox/Mg Hydrox/Simethicone 30 ml 05/22/20 17:30 Mag Hydrox/Al Hydrox/Simeth Susp 30 Ml Udcup PO 06/21/20 17:29 Q6HP PRN HEARTBURN Albuterol/Ipratropium 3 ml 05/22/20 17:30 Ipratropium/Albuterol 0.5-2.5 Mg/3 Ml Ampul NEB 06/21/20 17:29 RTQ6HP PRN SHORTNESS OF BREATH Aspirin 81 mg 05/22/20 22:00 05/22/20 22:06 Aspirin 81 Mg Tablet, Chewable PO 06/21/20 21:59 81 mg QHS CHAUNCEY Administration Atorvastatin Calcium 20 mg 05/22/20 22:00 05/22/20 22:07 Atorvastatin Calcium 20 Mg Tablet PO 06/21/20 21:59 20 mg QHS CHAUNCEY Administration Dextrose 12.5 gm 05/22/20 17:35 Dextrose 50%-Water 25 Gm/50 Ml Disp.Syrin IV 06/21/20 17:34 PRN PRN FOR BG 50-69 IN ALERT PATIENT Protocol Dextrose 25 gm 05/22/20 17:35 Dextrose 50%-Water 25 Gm/50 Ml Disp.Syrin IV 06/21/20 17:34 PRN PRN PER PROTOCOL Protocol Docusate Sodium 100 mg 05/23/20 10:00 Docusate Sodium 100 Mg Capsule PO 06/22/20 09:59 DAILY [facility] Enoxaparin Sodium 100 mg 05/22/20 22:00 05/22/20 22:07 Enoxaparin Sodium Inj 100 Mg/1 Ml Disp.Syrin SUBCUT 06/21/20 21:59 Not Gi stephen Q12 [facility] Furosemide 20 mg 05/23/20 10:00 Furosemide Inj/Pf 20 Mg/2 Ml Sdv IV 06/22/20 09:59 BID CHAUNCEY Glucagon 1 mg 05/22/20 17:35 Glucagon,Human Recomb 1 Mg Inj IM 06/21/20 17:34 PRN PRN Evaluate for BG < 70 Protocol Glucose 15 gm 05/22/20 17:35 Dextrose 40% Gel 15 Gm Tube PO 06/21/20 17:34 PRN PRN FOR BG 50-69 IN ALERT PATIENT Protocol Glucose 30 gm 05/22/20 17:35 Dextrose 40% Gel 15 Gm Tube PO 06/21/20 17:34 PRN PRN FOR BG < 50 IN ALERT PATIENT Protocol Insulin Human Lispro 0 - 12 unit 05/22/20 22:00 05/22/20 22:07 Insulin Lispro 100 Unit/Ml 3 Ml Vial SUBCUT 06/21/20 21:59 2 unit ACHS [facility] Administration Protocol Metoprolol Succinate 25 mg 05/23/20 10:00 Metoprolol Succinate 25 Mg Tab.Sr.24h PO 06/22/20 09:59 DAILY [facility] Nicotine 1 each 05/23/20 10:00 Nicotine 21 Mg/24 Hr Patch.Td24 TD 06/22/20 09:59 DAILY [facility] Promethazine HCl 6.25 mg 05/22/20 17:30 Promethazine Hcl Inj 25 Mg/1 Ml Vial IV 06/21/20 17:29 Q4HP PRN FOR NAUSEA/VOMITING Discontinued Medications Generic Name Dose Route Start Last Admin Trade Name Freq PRN Reason Stop Dose Admin Albuterol/Ipratropium 9 ml 05/22/20 16:28 05/22/20 16:52 Ipratropium/Albuterol 0.5-2.5 Mg/3 Ml Ampul NEB 05/22/20 16:29 9 ml NOW ONE Administration Azithromycin 500 mg 05/22/20 16:27 05/22/20 16:52 Azithromycin 250 Mg Tablet PO 05/22/20 16:28 500 mg NOW ONE Administration Ceftriaxone Sodium 1,000 mg 05/22/20 16:27 05/22/20 16:52 Ceftriaxone Inj 1000 Mg Vial IV 05/22/20 16:28 1,000 mg IVBAG (ED) ONE Administration Dexamethasone Sodium Phosphate 10 mg 05/22/20 15:50 05/22/20 16:12 Dexamethasone Sod Phos Inj 10 Mg/1 Ml Vial IV 05/22/20 15:51 10 mg NOW ONE Administration Enoxaparin Sodium 30 mg 05/23/20 10:00 Enoxaparin Sodium Inj 30 Mg/0.3 Ml Disp.Syrin SUBCUT 06/22/20 09:59 DAILY [facility] Furosemide 40 mg 05/22/20 17:30 05/22/20 18:10 Furosemide Inj/Pf 40 Mg/4 Ml Sdv IV 05/22/20 17:31 40 mg NOW ONE Administration Hydromorphone HCl 0.5 mg 05/22/20 15:50 05/22/20 16:12 Hydromorphone Hcl Inj/Pf 2 Mg/Ml Ampule IV 05/22/20 15:51 0.5 mg NOW ONE Administration Sodium Chloride 1,000 mls @ 0 mls/hr 05/22/20 15:46 05/22/20 16:50 Nacl 0.9% 1000 Ml Iv Soln IV 05/22/20 15:47 Infused BOLUS ONE Infusion Wide Open Lorazepam 1 mg 05/22/20 15:49 05/22/20 16:11 Lorazepam Inj 2 Mg/1 Ml Vial IV 05/22/20 15:50 1 mg NOW ONE Administration Nicotine 1 each 05/22/20 18:15 05/22/20 18:10 Nicotine 21 Mg/24 Hr Patch.Td24 TD 05/22/20 18:16 Not Given NOW ONE Assessment & Plan - Diagnosis (1) CHF (congestive heart failure) Qualifiers: Heart failure type: unspecified Heart failure chronicity: acute Qualified Code(s): I50.9 - Heart failure, unspecified Is this a current diagnosis for this admission?: Yes Plan: 59-year-old male with known history of coronary artery disease however not known to have heart failure in the past. It is difficult to assess his fluid status however he does have mild lower extremity edema and very faint rales at both bases in the setting of mildly elevated troponins and elevated BNP. Recommendations: -Continue diuresis as per hospitalist team. -Continue with current medical management for now. -Restrict fluid intake to 1500 cc daily. -Low sodium diet, less than 1500 mg daily. -Strict intake and output. -Daily weights. -Daily BMP and magnesium and replace electrolytes as needed. -Agree with echocardiogram today. -Further recommendations pending results of echocardiogram. (2) Elevated troponin I level Plan: It is unclear whether his mildly elevated troponin is secondary to a type II OH versus an acute coronary syndrome although he denies ischemic symptoms. Ultimately he will need ischemic assessment preferably with left heart catheterization once his renal function improves. Recommendations: -Continue with current medical management. -Increase Lipitor to 80 mg daily. -Continue with cardiac telemetry. -Sublingual nitroglycerin as needed if the patient develops chest pain. (3) Coronary artery disease Qualifiers: Associated angina: without angina Is this a current diagnosis for this admission?: Yes Plan: The patient had an OH in 2006 and underwent stenting of an unknown vessel at [facility]. Recommendations: -Get old cardiology records from [facility]. -Continue with current medical management for now with close attention to his platelet count. (4) JANETTE (acute kidney injury) Is this a current diagnosis for this admission?: Yes Plan: Further management per hospitalist team. (5) CAP (community acquired pneumonia) Qualifiers: Laterality: right Lung location: unspecified part of lung Qualified Code(s): J18.9 - Pneumonia, unspecified organism Is this a current diagnosis for this admission?: Yes Plan: Further management per hospitalist team.
[2020-05-23] MEDS: INSULIN LISPRO 100 UNIT/ML 3 ML VIAL SUBCUT SCH ×4 (08:52→21:33)
[2020-05-23] MEDS ORDERED: NITROGLYCERIN 0.4 MG/TAB 25 TAB/BOTTLE SL PRN (09:30)
[2020-05-23 09:31] LABS: APPEARANCE,URINE CLEAR; BILIRUBIN,URINE NEGATIVE (NEGATIVE); COLOR,URINE YELLOW; GLUCOSE, URINE 50 mg/dL (NEGATIVE); KETONES,URINE NEGATIVE (NEGATIVE); LEUKOCYTE ESTERASE,URINE NEGATIVE (NEGATIVE); NITRITE,URINE NEGATIVE (NEGATIVE); PROTEIN,URINE 100 mg/dL (NEGATIVE); URINE SPECIFIC GRAVITY 1.012; UROBILINOGEN,URINE NEGATIVE mg/dL (<2.0)
[2020-05-23] MEDS ORDERED: METOPROLOL SUCCINATE 25 MG TAB.SR.24H PO SCH (10:00)
[2020-05-23] MEDS ORDERED: ENOXAPARIN SODIUM INJ 30 MG/0.3 ML DISP.SYRIN SUBCUT SCH (10:00)
[2020-05-23] MEDS: FUROSEMIDE INJ/PF 20 MG/2 ML SDV IV SCH ×2 (11:14→17:00)
[2020-05-23] MEDS: AZITHROMYCIN 250 MG TABLET PO SCH (11:14)
[2020-05-23] MEDS: DOCUSATE SODIUM 100 MG CAPSULE PO SCH (11:14)
[2020-05-23] MEDS: ENOXAPARIN SODIUM INJ 100 MG/1 ML DISP.SYRIN SUBCUT SCH ×2 (11:15→21:33)
[2020-05-23] MEDS: NICOTINE 21 MG/24 HR PATCH.TD24 TD SCH (11:15)
--- NOTE | 2020-05-23 13:28 | PDOC PROGRESS REPORT ---
Subjective Date:: 05/23/20 Subjective:: LIZETTE MUNIZ is a 59 year old male with a past medical history significant for MT, cardiac cath with 1 stent (2006), hypertension, diabetes mellitus, obesity, and tobacco dependence with continuous use who was admitted 05/22/20 for acute respiratory failure with hypoxia, CHF exacerbation, and elevated troponin. Patient was seen on morning rounds. He was found sitting up to the chair, comfortably, on supplemental oxygen by nasal cannula at 6 L/min. He reports th at he is feeling well today and asks multiple times to be discharged home. He denies fever, chills, chest pain, palpitations, dyspnea, orthopnea, cough, abdominal pain, nausea, vomiting, diarrhea. He also denies hip and back pain which were his presenting complaints on arrival to the emergency department. Reviewed his laboratory work and recommendations for continued cardiac evaluation. He has no questions or concerns at this time. No concerns per nursing. Reason For Visit: ACUTE RESPIRATORY W/HYPOXIA Physical Exam Vital Signs: Temp Pulse Resp BP Pulse Ox 98.2 F 92 20 139/66 H 99 05/23/20 03:25 05/23/20 03:25 05/23/20 03:25 05/23/20 03:25 05/23/20 03:25 Intake & Output 05/22/20 05/23/20 05/24/20 06:59 06:59 06:59 Intake Total 1000 Balance 1000 Weight 101.2 kg General appearance: PRESENT: no acute distress, obese, well-developed, well- nourished Head exam: PRESENT: atraumatic, normocephalic Eye exam: PRESENT: conjunctiva pink, EOMI, PERRLA. ABSENT: scleral icterus Ear exam: PRESENT: normal external ear exam Mouth exam: PRESENT: moist, tongue midline Respiratory exam: PRESENT: crackles - Bibasilar, symmetrical, unlabored, other - Supplemental oxygen by nasal cannula. ABSENT: rales, rhonchi, wheezes Cardiovascular exam: PRESENT: RRR. ABSENT: diastolic murmur, rubs, systolic murmur Vascular exam: PRESENT: normal capillary refill Extremities exam: PRESENT: full ROM, +1 edema - Tight pitting edema BLE. ABSENT: calf tenderness, clubbing, pedal edema Musculoskeletal exam: PRESENT: ambulatory Neurological exam: PRESENT: alert, awake, oriented to person, oriented to place, oriented to time, oriented to situation, CN II-XII grossly intact. ABSENT: motor sensory deficit Psychiatric exam: PRESENT: normal mood, unusual affect. ABSENT: homicidal ideation, suicidal ideation Skin exam: PRESENT: dry, intact, warm. ABSENT: cyanosis, rash Results Laboratory Results: 05/23/20 05:53 05/23/20 05:53 05/22/20 05/22/20 05/22/20 13:12 13:26 18:08 WBC RBC Hgb Hct MCV MCH MCHC RDW Plt Count Carbonic Acid 1.35 HCO3/H2CO3 Ratio 18:1 ABG pH 7.36 ABG pCO2 44.9 ABG pO2 46.9 L ABG HCO3 24.9 H ABG O2 Saturation 81.1 L ABG Base Excess -0.8 FiO2 2L Sodium 132.4 L Potassium 4.6 Chloride 99 Carbon Dioxide 30 Anion Gap 3 L BUN 37 H Creatinine 2.29 H Est GFR ( Amer) 36 L Glucose 111 H Calcium 8.3 L Ferritin 103.00 C-Reactive Protein 30.9 H Triglycerides Cholesterol LDL Cholesterol Direct VLDL Cholesterol HDL Cholesterol TSH Urine Color YELLOW Urine Appearance SLIGHTLY-CLOUDY Urine pH 5.0 Ur Specific [place] 1.014 Urine Protein >=500 H Urine Glucose (UA) NEGATIVE Urine Ketones NEGATIVE Urine Blood MODERATE H Urine Nitrite NEGATIVE Ur Leukocyte Esterase NEGATIVE Urine WBC (Auto) 2 Urine RBC (Auto) 16 05/23/20 05/23/20 05/23/20 05:53 05:53 05:53 WBC 5.0 RBC 3.47 L Hgb 10.2 L Hct 29.5 L MCV 85 MCH 29.3 MCHC 34.5 RDW 13.9 Plt Count 104 L Carbonic Acid HCO3/H2CO3 Ratio ABG pH ABG pCO2 ABG pO2 ABG HCO3 ABG O2 Saturation ABG Base Excess FiO2 Sodium 133.6 L Potassium 4.7 Chloride 101 Carbon Dioxide 21 L Anion Gap 12 BUN 45 H Creatinine 2.13 H Est GFR ( Amer) 39 L Glucose 250 H Calcium 8.5 Ferritin C-Reactive Protein Triglycerides 62 Cholesterol 111.97 LDL Cholesterol Direct 53 VLDL Cholesterol 12.0 HDL Cholesterol 45 TSH 0.39 L Urine Color Urine Appearance Urine pH Ur Specific [place] Urine Protein Urine Glucose (UA) Urine Ketones Urine Blood Urine Nitrite Ur Leukocyte Esterase Urine WBC (Auto) Urine RBC (Auto) 05/23/20 07:30 WBC RBC Hgb Hct MCV MCH MCHC RDW Plt Count Carbonic Acid HCO3/H2CO3 Ratio ABG pH ABG pCO2 ABG pO2 ABG HCO3 ABG O2 Saturation ABG Base Excess FiO2 Sodium Potassium Chloride Carbon Dioxide Anion Gap BUN Creatinine Est GFR ( Amer) Glucose Calcium Ferritin C-Reactive Protein Triglycerides Cholesterol LDL Cholesterol Direct VLDL Cholesterol HDL Cholesterol TSH Urine Color YELLOW Urine Appearance CLEAR Urine pH 5.0 Ur Specific [place] 1.012 Urine Protein 100 H Urine Glucose (UA) 50 H Urine Ketones NEGATIVE Urine Blood MODERATE H Urine Nitrite NEGATIVE Ur Leukocyte Esterase NEGATIVE Urine WBC (Auto) 1 Urine RBC (Auto) 7 05/22/20 05/22/20 05/22/20 11:47 11:47 18:08 Creatine Kinase 351 H Troponin I 0.128 NT-Pro-B Natriuret Pep 1600 H 05/23/20 05/23/20 01:10 05:53 Creatine Kinase Troponin I 0.319 0.229 NT-Pro-B Natriuret Pep Impressions: Chest CT 05/22/20 00:00 IMPRESSION: EXTENSIVE GROUND-GLASS OPACITIES THROUGHOUT BOTH LUNGS CONCERNING FOR PNEUMONIA, POSSIBLY COVID- 19. SMALL PLEURAL EFFUSIONS. Head CT 05/22/20 00:00 IMPRESSION: NORMAL BRAIN CT WITHOUT CONTRAST. EVIDENCE OF ACUTE STROKE: NO. Chest X-Ray 05/22/20 11:12 IMPRESSION: DEVELOPING INFILTRATE IN THE RIGHT LUNG. Assessment and Plan - Diagnosis (1) CHF (congestive heart failure) Qualifiers: Heart failure type: unspecified Heart failure chronicity: acute Qualified Code(s): I50.9 - Heart failure, unspecified Is this a current diagnosis for this admission?: Yes Plan: Limited PMH; known to have had an MT with cardiac cath and stent x1. Presented with respiratory distress, hypoxia, tachycardia, hypertension, tachypnea, +3 pitting edema BLE, bilateral crackles, and JVD. Troponin 0.128-> 0.319-> 0.229 proBNP 1600 D.dimer elevated; can't have CTA r/t JANETTE. CXR shows developing right side opacity. EKG is sinus rhythm with t wave changes; no ST segment changes, heart block, or other acute/worrisome changes. Echocardiogram pending Patient is admitted to [facility] on continuous cardiac telemetry. Discussed case w/ Dr. Burch. Cardiology is consulted; Dr. Fournier is now on. Appreciate his assistance. Continue to diurese with IV furosemide. Start Toprol XL Will need [place] vs ARB vs Entresto once renal function improves and Echo is available. Cardiac diet; fluid restricted 1500 mL daily. Daily weights, strict I&O's. (2) Elevated troponin I level Is this a current diagnosis for this admission?: Yes Plan: Unclear if demand mismatch ischemia in setting of CHF exacerbation and hypoxia or ACS event. Troponin 0.128-> 0.319-> 0.229 proBNP 1600 Cardiology is consulted. Start daily aspirin and statin therapy. On full dose Lovenox secondary to elevated D-dimer and troponin pending further cardiac evaluation. (3) Acute respiratory failure with hypoxia Is this a current diagnosis for this admission?: Yes Plan: Secondary to CHF exacerbation. Less likely community acquired pneumonia. COVID negative. D. dimer is elevated, unfortunately, can not get CTA r/t renal function. ABG shows hypoxia (paO2 46.9 on 2lpm). Echocardiogram pending CT Chest shows bilateral groundglass opacities throughout. Supplemental oxygen and CPAP as needed to maintain saturations >89% As needed Duonebs. Will treat w/ full dose Lovenox given patient's elevated d. dimer and troponin. Avoid sedating medications in patient with hypoxia. Remaining management as above. (4) JANETTE (acute kidney injury) Is this a current diagnosis for this admission?: Yes Plan: Patient appears volume overloaded. Likely secondary to acute CHF exacerbation with decreased cardiac output. Slight downward trend in creatinine; 2.28-> 2.29-> 2.13 Unknown baseline. Continue to cautiously diurese with IV furosemide. Otherwise avoid nephrotoxic medications and renally dose were able. Follow-up chemistries. (5) Obesity (BMI 30-39.9) Is this a current diagnosis for this admission?: Yes Plan: Once alert, patient will be placed on consistent carb/cardiac diet. Dietary discretion and lifestyle modification will be encouraged. (6) Tobacco dependence Is this a current diagnosis for this admission?: Yes Plan: Smoking cessation encouraged. Nicotine replacement therapies provided. (7) Altered mental status Qualifiers: Altered mental status type: delirium Qualified Code(s): R41.0 - Disorientation, unspecified Is this a current diagnosis for this admission?: Yes Plan: Resolved. Now A&Ox4 though w/ odd affect. Likely secondary to hypoxia and decreased cardiac output. Nursing reports that while patient was A&Ox4, he had an od affect, was forgetful, with bizarre behaviors and poor safety awareness. Evaluation and management of respiratory failure and CHF as above. Head CT negative for acute findings. Supportive care. Fall precautions. (8) Diabetes Qualifiers: Diabetes mellitus type: type 2 Diabetes mellitus long-term insulin use: without terminal gauger use Is this a current diagnosis for this admission?: Yes Plan: New diagnosis. A1C 7.7% Patient is placed on a consistent carb diet. Accu-Cheks before meals and at bedtime with Humalog for sliding scale coverage. Hypoglycemia protocol in place. Registered dietitian personal development educator consulted. - Time Time Spent with patient: 25-34 minutes Medications reviewed and adjusted accordingly: Yes Anticipated Discharge Disposition: Home, Self Care Anticipated Discharge Timeframe: within 48 hours
[2020-05-23] MEDS: GABAPENTIN 400 MG CAPSULE PO SCH (21:32)
[2020-05-23] MEDS: ATORVASTATIN CALCIUM 80 MG TABLET PO SCH (21:32)
[2020-05-23] MEDS: METOPROLOL SUCCINATE 25 MG TAB.SR.24H PO SCH (21:32)
[2020-05-23] MEDS: ASPIRIN 81 MG TABLET, CHEWABLE PO SCH (21:32)
--- NOTE | 2020-05-23 21:48 | XCELERA REPORT ---
[address] [address] Transthoracic Echocardiogram Report Name: LIZETTE MUNIZ Age: 59 yrs Gender: Male : 1960 Patient Status: Inpatient Patient Location: [address] [place] [address] Study Date: 05/23/2020 11:43 AM Height: 66 in Weight: 223 lb BSA: 2.1 m2 Procedure: A complete two-dimensional transthoracic echocardiogram was performed (2D, M-mode, spectral and color flow Doppler). The study was technically difficult with many images being suboptimal in quality. Reason For Study: new dx CHF Ordering Physician: CHARLES BAJWA Performed By: Karina Ashley Interpretation Summary The left ventricle is grossly normal size. Left ventricular systolic function is normal. The Ejection Fraction estimate is 55-60%. Doppler measurements suggest normal left ventricular diastolic function. No regional wall motion abnormalities noted. Mild RVE. Mild LAE. Mild MR, mild TR. Moderate pulmonary hypertension with pressures between 52 and 57 mmHg. No prior studies for comparison. Pulmonary pressures estimated between 57 and 62 mmHg. No prior studies for comparison. MMode/2D Measurements & Calculations RVDd: 4.0 cm LVIDd: 4.7 cm FS: 30.8 % Ao root diam: 3.0 cm IVSd: 1.3 cm LVIDs: 3.2 cm EDV(Teich): 100.7 ml Ao root area: 6.9 cm2 LVPWd: 1.2 cm ESV(Teich): 41.9 ml LA dimension: 4.0 cm EF(Teich): 58.4 % Doppler Measurements & Calculations MV E max rody: MV P1/2t max rody: Ao V2 max: LV V1 max P.1 cm/sec 137.1 cm/sec 133.3 cm/sec 4.6 mmHg MV A max rody: MV P1/2t: 59.8 msec Ao max P.1 mmHgLV V1 max: 117.4 cm/sec MVA(P1/2t): 3.7 cm2 106.9 cm/sec MV E/A: 1.2 MV dec slope: 671.3 cm/sec2 MV dec time: 0.20 sec PA V2 max: TR max rody: MV P1/2t-pr_phl: 100.9 cm/sec 343.4 cm/sec 59.8 msec PA max P.1 mmHgTR max P.2 mmHg Left Ventricle The left ventricle is grossly normal size. Left ventricular systolic function is normal. The Ejection Fraction estimate is 55-60%. Doppler measurements suggest normal left ventricular diastolic function. No regional wall motion abnormalities noted. Right Ventricle The right ventricle is mildly dilated. The right ventricular systolic function is normal. Atria The right atrium is normal in size. The left atrium is mildly dilated. There is no Doppler evidence for an interatrial shunt. Mitral Valve The mitral valve is normal in structure and function. There is no mitral valve stenosis. There is a mild amount of mitral regurgitation. Aortic Valve The aortic valve is normal in structure and functions normally. There is no aortic valve stenosis. No aortic regurgitation is present. Tricuspid Valve The tricuspid valve is not well visualized, but is grossly normal. There is a moderate to severe amount of tricuspid regurgitation. There is moderate pulmonary hypertension by echo. Pulmonary pressures estimated between 57 and 62 mmHg. Pulmonic Valve The pulmonic valve is not well visualized. There is no pulmonic valvular regurgitation. Great Vessels The inferior vena cava appeared normal and decreased < 50% with respiration (RAP 10-15 mmHg). Effusions There is no pericardial effusion. : CHARLES BAJWA Antonio
[2020-05-23] MEDS ORDERED: ATORVASTATIN CALCIUM 20 MG TABLET PO SCH (22:00)
[2020-05-24 05:21] LABS: HEMATOCRIT 29.9 % (37.9-51.0); HEMOGLOBIN 10.3 g/dL (13.5-17.0); MEAN CORPUSCULAR HEMOGLOBIN 29.3 pg (27.0-33.4); MEAN CORPUSCULAR HGB CONC 34.6 g/dL (32.0-36.0); MEAN CORPUSCULAR VOLUME 85 fl (80-97); PLATELET COUNT 100 10^3/uL (150-450); RED BLOOD COUNT 3.54 10^6/uL (4.35-5.55); RED CELL DISTRIBUTION WIDTH 13.7 % (11.5-14.0); WHITE BLOOD COUNT 6.1 10^3/uL (4.0-10.5)
[2020-05-24] MEDS: GABAPENTIN 400 MG CAPSULE PO SCH ×3 (05:35→21:31)
[2020-05-24 05:44] LABS: ANION GAP 8 (5-19); BLOOD UREA NITROGEN 51 mg/dL (7-20); CALCIUM 8.8 mg/dL (8.4-10.2); CARBON DIOXIDE 28 mmol/L (22-30); CHLORIDE 103 mmol/L (98-107); GLUCOSE 165 mg/dL (75-110); POTASSIUM 4.2 mmol/L (3.6-5.0)
--- NOTE | 2020-05-24 07:59 | PDOC PROGRESS REPORT ---
Subjective Date:: 05/24/20 Subjective:: LIZETTE MUNIZ is a 59 year old male with history of coronary artery disease status post VT in 2007 treated with a stent to an unknown vessel at [facility], hypertension, diabetes, obesity and ongoing tobacco use with 2 packs/day for the last 30 to 40 years who is consulted to our service for evaluation of elevated troponin and suspected heart failure. EMS was initially called to his home due to hip pain however he was found to be hypoxic with a pulse ox of 83% on room air as well as increased work of breathing. In the emergency room his temperature was mildly elevated to 99.3 among other findings. His chest x-ray was concerning for a developing pneumonia and CT scan of the chest revealed extensive, bilateral ground glass appearance concerning for COVID -19 pneumonia as well as small pleural effusions. Of note, the patient tested negative for COVID-19. He also had mildly elevated cardiac troponins which are now downtrending and peaked at 0.319. His telemetry shows normal sinus rhythm. This morning he feels better and has no cardiovascular complaints. He is anxious to go home. 05/24/2020: The patient had an uneventful night. His echocardiogram yesterday was most remarkable for normal ejection fraction, no gross regional wall motion abnorm alities and moderate to severe pulmonary hypertension with pressures estimated between 57 and 62 mmHg among other findings. Unfortunately his urinary output was not measured for the first 24 hours of his hospitalization however he is responding well to current doses of IV Lasix and is -399 cc in his net fluid balance. His electrolytes are within normal limits and his creatinine is slightly improved. He has no complaints this morning and specifically denies ischemic and heart failure symptoms. Unfortunately cardiac telemetry is nonfunctional currently on the fourth floor where he is admitted. Physical exam on 05/24/2020: GENERAL: Pleasant and conversational. Oriented x3 with normal mood. Not in acute distress. Well groomed and well developed. HEENT: Normocephalic, atraumatic. Pupils equal. Sclerae anicteric. Oropharynx moist. NECK: No JVD. No carotid bruits. LUNGS: Decreased breath sounds bilaterally, clear to auscultation bilaterally. Normal respiratory effort without the use of accessory muscles or intercostal retractions. CARDIOVASCULAR: Regular rate and rhythm, normal S1 and S2 without murmurs, rubs, or gallops. PMI not displaced. ABDOMEN: No masses or tenderness to palpation. No bruit. No splenomegaly or hepatomegaly. No abdominal aorta bruit noted. EXTREMITIES: No edema, no cyanosis, no clubbing. +2 pulses femoral and pedal pulses bilaterally. SKIN: No lesions or rashes. MUSCULOSKELETAL: No chest tenderness to palpation. NEUROLOGIC: Nonfocal. No gross sensory or motor deficits bilateral upper or lower extremities. Cardiac studies: Echocardiogram at [facility] on 05/23/2020: -EF 55 to 60%. -No gross regional wall motion abnormalities. -Mild RVE. -Mild LAE. -Mild MR, mild TR. -Moderate to severe pulmonary hypertension with pressures between 57 and 60 mmHg. -No prior studies for comparison. Reason For Visit: ACUTE RESPIRATORY W/HYPOXIA Physical Exam Vital Signs: Temp Pulse Resp BP Pulse Ox 97.9 F 73 18 131/63 H 94 05/24/20 00:00 05/24/20 02:00 05/24/20 00:00 05/24/20 00:00 05/24/20 00:00 Intake & Output 05/22/20 05/23/20 05/24/20 06:59 06:59 06:59 Intake Total 1000 876 Output Total 1275 Balance 1000 -399 Weight 101.2 kg 100.8 kg Results Laboratory Results: 05/24/20 04:42 05/24/20 04:42 05/23/20 05/23/20 05/23/20 05:53 05:53 07:30 WBC RBC Hgb Hct MCV MCH MCHC RDW Plt Count Sodium 133.6 L Potassium 4.7 Chloride 101 Carbon Dioxide 21 L Anion Gap 12 BUN 45 H Creatinine 2.13 H Est GFR ( Amer) 39 L Glucose 250 H Calcium 8.5 Magnesium Triglycerides 62 Cholesterol 111.97 LDL Cholesterol Direct 53 VLDL Cholesterol 12.0 HDL Cholesterol 45 TSH 0.39 L Urine Color YELLOW Urine Appearance CLEAR Urine pH 5.0 Ur Specific Eden 1.012 Urine Protein 100 H Urine Glucose (UA) 50 H Urine Ketones NEGATIVE Urine Blood MODERATE H Urine Nitrite NEGATIVE Ur Leukocyte Esterase NEGATIVE Urine WBC (Auto) 1 Urine RBC (Auto) 7 05/24/20 05/24/20 04:42 04:42 WBC 6.1 RBC 3.54 L Hgb 10.3 L Hct 29.9 L MCV 85 MCH 29.3 MCHC 34.6 RDW 13.7 Plt Count 100 L Sodium 139.3 Potassium 4.2 Chloride 103 Carbon Dioxide 28 Anion Gap 8 BUN 51 H Creatinine 1.77 H Est GFR ( Amer) 48 L Glucose 165 H Calcium 8.8 Magnesium 2.1 Triglycerides Cholesterol LDL Cholesterol Direct VLDL Cholesterol HDL Cholesterol TSH Urine Color Urine Appearance Urine pH Ur Specific Eden Urine Protein Urine Glucose (UA) Urine Ketones Urine Blood Urine Nitrite Ur Leukocyte Esterase Urine WBC (Auto) Urine RBC (Auto) 05/22/20 05/22/20 05/22/20 11:47 11:47 18:08 Creatine Kinase 351 H Troponin I 0.128 NT-Pro-B Natriuret Pep 1600 H 05/23/20 05/23/20 05/24/20 01:10 05:53 04:42 Creatine Kinase Troponin I 0.319 0.229 NT-Pro-B Natriuret Pep 2250 H Impressions: Chest CT 05/22/20 00:00 IMPRESSION: EXTENSIVE GROUND-GLASS OPACITIES THROUGHOUT BOTH LUNGS CONCERNING FOR PNEUMONIA, POSSIBLY COVID- 19. SMALL PLEURAL EFFUSIONS. Head CT 05/22/20 00:00 IMPRESSION: NORMAL BRAIN CT WITHOUT CONTRAST. EVIDENCE OF ACUTE STROKE: NO. Chest X-Ray 05/22/20 11:12 IMPRESSION: DEVELOPING INFILTRATE IN THE RIGHT LUNG. 05/24/20 04:42 05/24/20 04:42 MCV 85 fl (80-97) 05/24/20 04:42 MCH 29.3 pg (27.0-33.4) 05/24/20 04:42 MCHC 34.6 g/dL (32.0-36.0) 05/24/20 04:42 RDW 13.7 % (11.5-14.0) 05/24/20 04:42 Seg Neutrophils % 79.2 % (42-78) H 05/22/20 11:47 Carbonic Acid 1.35 mmol/L (1.05-1.35) 05/22/20 13:12 HCO3/H2CO3 Ratio 18:1 05/22/20 13:12 ABG pH 7.36 (7.35-7.45) 05/22/20 13:12 ABG pCO2 44.9 mmHg (35-45) 05/22/20 13:12 ABG pO2 46.9 mmHg (80-100) L 05/22/20 13:12 ABG HCO3 24.9 mmol/L (20-24) H 05/22/20 13:12 ABG O2 Saturation 81.1 % (94-98) L 05/22/20 13:12 ABG Base Excess -0.8 mmol/L 05/22/20 13:12 FiO2 2L 05/22/20 13:12 Chloride 103 mmol/L (98-107) 05/24/20 04:42 Carbon Dioxide 28 mmol/L (22-30) 05/24/20 04:42 Anion Gap 8 (5-19) 05/24/20 04:42 Est GFR ( Amer) 48 (>60) L 05/24/20 04:42 Glucose 165 mg/dL (75-110) H 05/24/20 04:42 Calcium 8.8 mg/dL (8.4-10.2) 05/24/20 04:42 Magnesium 2.1 mg/dL (1.6-2.3) 05/24/20 04:42 Ferritin 103.00 ng/mL (17.9-464.0) 05/22/20 18:08 Total Bilirubin 0.7 mg/dL (0.2-1.3) 05/22/20 11:47 AST 22 U/L (17-59) 05/22/20 11:47 Alkaline Phosphatase 60 U/L (38-126) 05/22/20 11:47 C-Reactive Protein 30.9 mg/L (<10.0) H 05/22/20 18:08 Total Protein 6.5 g/dL (6.3-8.2) 05/22/20 11:47 Albumin 3.6 g/dL (3.5-5.0) 05/22/20 11:47 Triglycerides 62 mg/dL (<150) 05/23/20 05:53 Cholesterol 111.97 mg/dL (0-200) 05/23/20 05:53 LDL Cholesterol Direct 53 mg/dL (<100) 05/23/20 05:53 VLDL Cholesterol 12.0 mg/dL (10-31) 05/23/20 05:53 HDL Cholesterol 45 mg/dL (>40) 05/23/20 05:53 TSH 0.39 uIU/mL (0.47-4.68) L 05/23/20 05:53 Urine Color YELLOW 05/23/20 07:30 Urine Appearance CLEAR 05/23/20 07:30 Urine pH 5.0 (5.0-9.0) 05/23/20 07:30 Ur Specific Eden 1.012 05/23/20 07:30 Urine Protein 100 mg/dL (NEGATIVE) H 05/23/20 07:30 Urine Glucose (UA) 50 mg/dL (NEGATIVE) H 05/23/20 07:30 Urine Ketones NEGATIVE mg/dL (NEGATIVE) 05/23/20 07:30 Urine Blood MODERATE (NEGATIVE) H 05/23/20 07:30 Urine Nitrite NEGATIVE (NEGATIVE) 05/23/20 07:30 Ur Leukocyte Esterase NEGATIVE (NEGATIVE) 05/23/20 07:30 Urine WBC (Auto) 1 /HPF 05/23/20 07:30 Urine RBC (Auto) 7 /HPF 05/23/20 07:30 05/22/20 05/22/20 05/22/20 11:47 11:47 18:08 Creatine Kinase 351 H Troponin I 0.128 NT-Pro-B Natriuret Pep 1600 H 05/23/20 05/23/20 05/24/20 01:10 05:53 04:42 Creatine Kinase Troponin I 0.319 0.229 NT-Pro-B Natriuret Pep 2250 H Current Medication List Generic Name Dose Route Start Last Admin Trade Name Freq PRN Reason Stop Dose Admin Acetaminophen 650 mg 05/22/20 17:30 Acetaminophen 325 Mg Tablet PO 06/21/20 17:29 Q4HP PRN FOR PAIN OR TEMP Al Hydrox/Mg Hydrox/Simethicone 30 ml 05/22/20 17:30 Mag Hydrox/Al Hydrox/Simeth Susp 30 Ml Udcup PO 06/21/20 17:29 Q6HP PRN HEARTBURN Albuterol/Ipratropium 3 ml 05/22/20 17:30 Ipratropium/Albuterol 0.5-2.5 Mg/3 Ml Ampul NEB 06/21/20 17:29 RTQ6HP PRN SHORTNESS OF BREATH Amlodipine Besylate 10 mg 05/24/20 10:00 Amlodipine Besylate 10 Mg Tablet PO 06/23/20 09:59 DAILY CHAUNCEY Aspirin 81 mg 05/22/20 22:00 05/23/20 21:32 Aspirin 81 Mg Tablet, Chewable PO 06/21/20 21:59 81 mg QHS CHAUNCEY Administration Atorvastatin Calcium 80 mg 05/23/20 22:00 05/23/20 21:32 Atorvastatin Calcium 80 Mg Tablet PO 06/22/20 21:59 80 mg QHS CHAUNCEY Administration Azithromycin 250 mg 05/23/20 10:00 05/23/20 11:14 Azithromycin 250 Mg Tablet PO 05/30/20 09:59 250 mg DAILY CHAUNCEY Administration Dextrose 12.5 gm 05/22/20 17:35 Dextrose 50%-Water 25 Gm/50 Ml Disp.Syrin IV 06/21/20 17:34 PRN PRN FOR BG 50-69 IN ALERT PATIENT Protocol Dextrose 25 gm 05/22/20 17:35 Dextrose 50%-Water 25 Gm/50 Ml Disp.Syrin IV 06/21/20 17:34 PRN PRN PER PROTOCOL Protocol Docusate Sodium 100 mg 05/23/20 10:00 05/23/20 11:14 Docusate Sodium 100 Mg Capsule PO 06/22/20 09:59 100 mg DAILY CHAUNCEY Administration Enoxaparin Sodium 100 mg 05/23/20 10:00 05/23/20 21:33 Enoxaparin Sodium Inj 100 Mg/1 Ml Disp.Syrin SUBCUT 06/21/20 09:59 100 mg Q12 CHAUNCEY Administration Furosemide 20 mg 05/23/20 10:00 05/23/20 17:00 Furosemide Inj/Pf 20 Mg/2 Ml Sdv IV 06/22/20 09:59 20 mg BID CHAUNCEY Administration Gabapentin 800 mg 05/23/20 22:00 05/24/20 05:35 Gabapentin 400 Mg Capsule PO 06/22/20 21:59 800 mg Q8 CHAUNCEY Administration Glucagon 1 mg 05/22/20 17:35 Glucagon,Human Recomb 1 Mg Inj IM 06/21/20 17:34 PRN PRN Evaluate for BG < 70 Protocol Glucose 15 gm 05/22/20 17:35 Dextrose 40% Gel 15 Gm Tube PO 06/21/20 17:34 PRN PRN FOR BG 50-69 IN ALERT PATIENT Protocol Glucose 30 gm 05/22/20 17:35 Dextrose 40% Gel 15 Gm Tube PO 06/21/20 17:34 PRN PRN FOR BG < 50 IN ALERT PATIENT Protocol Insulin Human Lispro 0 - 12 unit 05/22/20 22:00 05/23/20 21:33 Insulin Lispro 100 Unit/Ml 3 Ml Vial SUBCUT 06/21/20 21:59 2 unit ACHS CHAUNCEY Administration Protocol Metoprolol Succinate 25 mg 05/23/20 22:00 05/23/20 21:32 Metoprolol Succinate 25 Mg Tab.Sr.24h PO 06/22/20 21:59 25 mg Q12 CHAUNCEY Administration Nicotine 1 each 05/23/20 10:00 05/23/20 11:15 Nicotine 21 Mg/24 Hr Patch.Td24 TD 06/22/20 09:59 1 each DAILY CHAUNCEY Administration Nitroglycerin 1 tab 05/23/20 09:30 Nitroglycerin 0.4 Mg/Tab 25 Tab/Bottle SL 06/22/20 09:29 Q5MP PRN FOR CHEST PAIN Pentoxifylline 400 mg 05/24/20 08:00 Pentoxifylline 400 Mg Tablet.Sa PO 06/23/20 07:59 BIDACBS CHAUNCEY Promethazine HCl 6.25 mg 05/22/20 17:30 Promethazine Hcl Inj 25 Mg/1 Ml Vial IV 06/21/20 17:29 Q4HP PRN FOR NAUSEA/VOMITING Discontinued Medications Generic Name Dose Route Start Last Admin Trade Name Freq PRN Reason Stop Dose Admin Albuterol/Ipratropium 9 ml 05/22/20 16:28 05/22/20 16:52 Ipratropium/Albuterol 0.5-2.5 Mg/3 Ml Ampul NEB 05/22/20 16:29 9 ml NOW ONE Administration Atorvastatin Calcium 20 mg 05/22/20 22:00 05/22/20 22:07 Atorvastatin Calcium 20 Mg Tablet PO 06/21/20 21:59 20 mg QHS CHAUNCEY Administration Azithromycin 500 mg 05/22/20 16:27 05/22/20 16:52 Azithromycin 250 Mg Tablet PO 05/22/20 16:28 500 mg NOW ONE Administration Ceftriaxone Sodium 1,000 mg 05/22/20 16:27 05/22/20 16:52 Ceftriaxone Inj 1000 Mg Vial IV 05/22/20 16:28 1,000 mg IVBAG (ED) ONE Administration Dexamethasone Sodium Phosphate 10 mg 05/22/20 15:50 05/22/20 16:12 Dexamethasone Sod Phos Inj 10 Mg/1 Ml Vial IV 05/22/20 15:51 10 mg NOW ONE Administration Enoxaparin Sodium 30 mg 05/23/20 10:00 Enoxaparin Sodium Inj 30 Mg/0.3 Ml Disp.Syrin SUBCUT 06/22/20 09:59 DAILY CHAUNCEY Enoxaparin Sodium 100 mg 05/22/20 22:00 05/22/20 22:07 Enoxaparin Sodium Inj 100 Mg/1 Ml Disp.Syrin SUBCUT 06/21/20 21:59 Not Given Q12 CHAUNCEY Furosemide 40 mg 05/22/20 17:30 05/22/20 18:10 Furosemide Inj/Pf 40 Mg/4 Ml Sdv IV 05/22/20 17:31 40 mg NOW ONE Administration Hydromorphone HCl 0.5 mg 05/22/20 15:50 05/22/20 16:12 Hydromorphone Hcl Inj/Pf 2 Mg/Ml Ampule IV 05/22/20 15:51 0.5 mg NOW ONE Administration Sodium Chloride 1,000 mls @ 0 mls/hr 05/22/20 15:46 05/22/20 16:50 Nacl 0.9% 1000 Ml Iv Soln IV 05/22/20 15:47 Infused BOLUS ONE Infusion Wide Open Lorazepam 1 mg 05/22/20 15:49 05/22/20 16:11 Lorazepam Inj 2 Mg/1 Ml Vial IV 05/22/20 15:50 1 mg NOW ONE Administration Metoprolol Succinate 25 mg 05/23/20 10:00 05/23/20 11:14 Metoprolol Succinate 25 Mg Tab.Sr.24h PO 06/22/20 09:59 25 mg DAILY CHAUNCEY Administration Nicotine 1 each 05/22/20 18:15 05/22/20 18:10 Nicotine 21 Mg/24 Hr Patch.Td24 TD 05/22/20 18:16 Not Given NOW ONE Assessment & Plan - Diagnosis (1) Heart failure with preserved ejection fraction Qualifiers: Heart failure chronicity: acute Qualified Code(s): I50.31 - Acute diastolic (congestive) heart failure Is this a current diagnosis for this admission?: Yes Plan: 59-year-old male with known history of coronary artery disease however not known to have heart failure in the past. Clinically he looks much better than yesterday, with clear lungs and no lower extremity edema. He continues to deny ischemic symptoms. Luckily enough, his echocardiogram demonstrated a normal ejection fraction without gross regional wall motion abnormalities. Recommendations: -Continue diuresis as per hospitalist team. -Continue with current medical management for now. -Restrict fluid intake to 1500 cc daily. -Low sodium diet, less than 1500 mg daily. -Strict intake and output. -Daily weights. -Daily BMP and magnesium and replace electrolytes as needed. (2) Elevated troponin I level Is this a current diagnosis for this admission?: Yes Plan: It is unclear whether his mildly elevated troponin is secondary to a type II VT versus an acute coronary syndrome although he continues to deny ischemic symptoms. We have not received any of his prior cardiac records yet however they had been requested as of yesterday. At this point I believe both Lexiscan nuclear stress test versus left heart catheterization would be appropriate for further risk stratification prior to discharge however given his renal dysfunction we will continue to monitor for now and if, his creatinine continues to be above 1.5, we will then proceed with pharmacological nuclear stress test otherwise I will prefer to proceed with left heart catheterization. Of note, he has been anticoagulated with full dose Lovenox since admission however his platelets for downtrending slowly therefore, given the fact that the patient likely had a type II VT, it would be appropriate to discontinue full dose Lovenox for now if the patient does not have any other indication for the medication and, if so, he will probably need a different anticoagulant but I will defer this decision to the hospitalist team. Recommendations: -Continue with current medical management except for Lovenox as indicated above. -Continue with cardiac telemetry. -Sublingual nitroglycerin as needed if the patient develops chest pain. -Plan to proceed with pharmacological nuclear stress test on 05/26/2020. (3) Coronary artery disease Qualifiers: Associated angina: without angina Is this a current diagnosis for this admission?: Yes Plan: The patient had an VT in 2006 and underwent stenting of an unknown vessel at [facility], we are still awaiting prior records. The patient has remained hemodynamically stable and free of ischemic symptoms. The nursing staff was notified by myself this morning regarding the nonfunctional status of his telemetry. Recommendations: -Get old cardiology records from [facility]. -Continue with current medical management for now with close attention to his platelet count. (4) JANETTE (acute kidney injury) Is this a current diagnosis for this admission?: Yes Plan: Further management per hospitalist team. (5) CAP (community acquired pneumonia) Qualifiers: Laterality: right Lung location: unspecified part of lung Qualified Co de(s): J18.9 - Pneumonia, unspecified organism Is this a current diagnosis for this admission?: Yes Plan: Further management per hospitalist team.
[2020-05-24] MEDS: INSULIN LISPRO 100 UNIT/ML 3 ML VIAL SUBCUT SCH ×4 (08:09→21:30)
[2020-05-24] MEDS: PENTOXIFYLLINE 400 MG TABLET.SA PO SCH ×2 (08:09→16:51)
[2020-05-24] MEDS: AZITHROMYCIN 250 MG TABLET PO SCH (09:37)
[2020-05-24] MEDS: AMLODIPINE BESYLATE 10 MG TABLET PO SCH (09:37)
[2020-05-24] MEDS: METOPROLOL SUCCINATE 25 MG TAB.SR.24H PO SCH ×2 (09:38→21:31)
[2020-05-24] MEDS: DOCUSATE SODIUM 100 MG CAPSULE PO SCH (09:38)
[2020-05-24] MEDS: FUROSEMIDE INJ/PF 20 MG/2 ML SDV IV SCH ×2 (09:38→17:00)
[2020-05-24] MEDS: ENOXAPARIN SODIUM INJ 30 MG/0.3 ML DISP.SYRIN SUBCUT SCH (09:39)
[2020-05-24] MEDS: NICOTINE 21 MG/24 HR PATCH.TD24 TD SCH (09:39)
[2020-05-24] MEDS ORDERED: (PENDING PHARMACY ID) (Gabapentin [Neurontin] 800 MG Tablet) PO SCH (10:00)
--- NOTE | 2020-05-24 16:42 | PDOC PROGRESS REPORT ---
Subjective Date:: 05/24/20 Subjective:: LIZETTE MUNIZ is a 59 year old male with a past medical history significant for PA, cardiac cath with 1 stent (dant 2006), hypertension, diabetes mellitus, obesity, and tobacco dependence with continuous use who was admitted 05/22/20 for acute respiratory failure with hypoxia, CHF exacerbation, and elevated troponin. Patient seen on morning rounds. He is found sitting upright in chair, comfortably O2 sat 95% on 2 L nasal cannula. States that overall he is feeling well and is curious as to when he will be discharged home. He denies any fever, chills, chest pain, palpitations, shortness of breath, PND, orthopnea, cough abdominal pain, nausea, vomiting, diarrhea. Tells me that he has a 15-year-old at home and is wanting to be home from her symptoms. At this time he is scheduled for stress test on 05/26/2020. He is made aware of my understanding. Discussed with nursing no concerns or complaints today. Reason For Visit: ACUTE RESPIRATORY W/HYPOXIA Physical Exam Vital Signs: Temp Pulse Resp BP Pulse Ox 98.2 F 71 18 142/64 H 95 05/24/20 11:27 05/24/20 14:00 05/24/20 11:27 05/24/20 11:27 05/24/20 11:27 Intake & Output 05/23/20 05/24/20 05/25/20 06:59 06:59 06:59 Intake Total 5371 334 1442 Output Total 1275 Balance 1000 -399 1440 Weight 101.2 kg 100.8 kg 94 kg Additional comments: General appearance: PRESENT: no acute distress, obese, well-developed, well- nourished Head exam: PRESENT: atraumatic, normocephalic Eye exam: PRESENT: conjunctiva pink, EOMI, PERRLA. ABSENT: scleral icterus Ear exam: PRESENT: normal external ear exam Mouth exam: PRESENT: moist, tongue midline Respiratory exam: PRESENT: Clear lung sounds bilaterally, symmetrical and unlabored with Supplemental oxygen by nasal cannula. ABSENT: rales, rhonchi, wheezes Cardiovascular exam: PRESENT: RRR. ABSENT: diastolic murmur, rubs, systolic murmur Vascular exam: PRESENT: normal capillary refill Extremities exam: PRESENT: full ROM, no evidence of edema. ABSENT: calf tenderness, clubbing, pedal edema Musculoskeletal exam: PRESENT: ambulatory Neurological exam: PRESENT: alert, awake, oriented to person, oriented to place, oriented to time, oriented to situation, CN II-XII grossly intact. ABSENT: motor sensory deficit Psychiatric exam: PRESENT: normal mood, unusual affect. ABSENT: homicidal ideation, suicidal ideation Skin exam: PRESENT: dry, intact, warm. ABSENT: cyanosis, rash Results Laboratory Results: 05/24/20 04:42 05/24/20 04:42 05/24/20 05/24/20 04:42 04:42 WBC 6.1 RBC 3.54 L Hgb 10.3 L Hct 29.9 L MCV 85 MCH 29.3 MCHC 34.6 RDW 13.7 Plt Count 100 L Sodium 139.3 Potassium 4.2 Chloride 103 Carbon Dioxide 28 Anion Gap 8 BUN 51 H Creatinine 1.77 H Est GFR ( Amer) 48 L Glucose 165 H Calcium 8.8 Magnesium 2.1 05/22/20 05/22/20 05/22/20 11:47 11:47 18:08 Creatine Kinase 351 H Troponin I 0.128 NT-Pro-B Natriuret Pep 1600 H 05/23/20 05/23/20 05/24/20 01:10 05:53 04:42 Creatine Kinase Troponin I 0.319 0.229 NT-Pro-B Natriuret Pep 2250 H Impressions: Chest CT 05/22/20 00:00 IMPRESSION: EXTENSIVE GROUND-GLASS OPACITIES THROUGHOUT BOTH LUNGS CONCERNING FOR PNEUMONIA, POSSIBLY COVID- 19. SMALL PLEURAL EFFUSIONS. Head CT 05/22/20 00:00 IMPRESSION: NORMAL BRAIN CT WITHOUT CONTRAST. EVIDENCE OF ACUTE STROKE: NO. Chest X-Ray 05/22/20 11:12 IMPRESSION: DEVELOPING INFILTRATE IN THE RIGHT LUNG. Assessment and Plan - Diagnosis (1) Heart failure with preserved ejection fraction Qualifiers: Heart failure chronicity: acute Qualified Code(s): I50.31 - Acute diastolic (congestive) heart failure Is this a current diagnosis for this admission?: Yes Plan: On initial presentation: respiratory distress, hypoxia, tachycardia, hypertension, tachypnea, +3 pitting edema BLE, bilateral crackles, and JVD. - Lungs are clear to auscultation, without pitting edema today. - Reportedly improved from yesterday. Cardiology consulted, note reviewed in detail recommendations appreciated as discussed below. - Echocardiogram at [facility] on 05/23/2020: EF 55 to 60%. No gross regional wall motion abnormalities. Mild RVE. Mild LAE. Mild MR, mild TR. Moderate to severe pulmonary hypertension with pressures between 57 and 60 mmHg. No prior studies for comparison. - Continue IV diuresis - Restrict fluid intake, low-sodium diet, strict I's and O's, daily weights. - Daily BMP and magnesium and replace electrolytes as needed. Continue IV furosemide 20 mg twice daily. Continue Toprol XL (2) Elevated troponin I level Is this a current diagnosis for this admission?: Yes Plan: Denies ischemic symptoms. Unclear if demand mismatch ischemia in setting of CHF exacerbation and hypoxia or ACS event. - Troponin 0.128-> 0.319-> 0.229 - proBNP 1600 Cardiology is consulted, note reviewed in detail, recommendations as follows. - Recommends stress test versus left heart cath for further risk stratification prior to discharge. - Stress test scheduled 05/26 (in the lieu of creatinine greater than 1.5.) - Monitor creatinine, if <1.5 consider left heart cath - Increase Lipitor 80 mg daily Discontinued full dose Lovenox per cardiology recommendations - Platelets trending downward slowly Continue daily aspirin and statin therapy. (3) Coronary artery disease Qualifiers: Associated angina: without angina Is this a current diagnosis for this admission?: Yes Plan: History of PA in 2006, underwent stenting of unknown vessel at [facility]. - Records have been requested though not yet available were obtained knowledge. - Treatment as discussed above - Stress test scheduled 05/26. (4) Acute respiratory failure with hypoxia Is this a current diagnosis for this admission?: Yes Plan: Multifocal in nature, CHF exacerbation, less likely CAP. With significant improvement in O2 sats requirement with diuresis thus likely secondary to CHF exacerbation. - D. dimer is elevated, unfortunately, can not get CTA r/t renal function. (Lovenox therapy as discussed above) - Prior ABG shows hypoxia (paO2 46.9 on 2lpm). - CT Chest shows bilateral groundglass opacities throughout. Supplemental oxygen and CPAP as needed to maintain saturations >89% - Initially on 6L NC, has since weened to 2L NC with appropriate saturation. - Continue to wean as tolerated Cnt As needed Duonebs. Avoid sedating medications in patient with hypoxia. Remaining management as above. (5) JANETTE (acute kidney injury) Is this a current diagnosis for this admission?: Yes Plan: Initial presentation patient was volume overloaded with pitting edema and crackles, this has since improved patient is without pitting edema and with lungs CTA today. - Likely secondary to acute CHF exacerbation. - Slight downward trend in creatinine; 2.28-> 2.29-> 2.13 -> 1.77 today with diuresis - Unknown baseline. Continue to cautiously diurese with IV furosemide. Otherwise avoid nephrotoxic medications and renally dose were able. Follow-up chemistries. (6) Obesity (BMI 30-39.9) Is this a current diagnosis for this admission?: Yes Plan: Placed on consistent carb/cardiac diet. Dietary discretion and lifestyle modification encouraged. (7) Tobacco dependence Is this a current diagnosis for this admission?: Yes Plan: Smoking cessation encouraged. Nicotine replacement therapies provided. (8) Altered mental status Qualifiers: Altered mental status type: delirium Qualified Code(s): R41.0 - Disorientation, unspecified Is this a current diagnosis for this admission?: Yes Plan: This resolved under previous providers care. He is A&Ox4 on my evaluation. Head CT negative for acute findings. This improved with treatment as above for CHF, likely secondary to hypoxia, continue treatment as above. Supportive care. Fall precautions. (9) Diabetes Qualifiers: Diabetes mellitus type: type 2 Diabetes mellitus superintendent terminal insulin use: without senior care use Is this a current diagnosis for this admission?: Yes Plan: New diagnosis. A1C 7.7% Patient is placed on a consistent carb diet. Accu-Cheks before meals and at bedtime with Humalog for sliding scale coverage. Hypoglycemia protocol in place. Registered dietitian staff educator consulted. - Plan Summary Summary: Overall significant improvement in patient presentation. Continue with IV diuresis. Plan for stress test 05/26. Her creatinine if <1.5 consider left heart cath instead. Continue to wean supplemental oxygen. Likely discharge jhonny e following stress test. - Time Time Spent with patient: 25-34 minutes Smoking Cessation Education: 3 to 10 minutes Medications reviewed and adjusted accordingly: Yes Anticipated Discharge Disposition: Home, Self Care Anticipated Discharge Timeframe: within 48 hours
[2020-05-24] MEDS: ASPIRIN 81 MG TABLET, CHEWABLE PO SCH (21:31)
[2020-05-24] MEDS: ATORVASTATIN CALCIUM 80 MG TABLET PO SCH (21:31)
[2020-05-25] MEDS: GABAPENTIN 400 MG CAPSULE PO SCH ×3 (05:11→21:49)
[2020-05-25 07:09] LABS: HEMATOCRIT 30.9 % (37.9-51.0); HEMOGLOBIN 10.6 g/dL (13.5-17.0); MEAN CORPUSCULAR HEMOGLOBIN 29.1 pg (27.0-33.4); MEAN CORPUSCULAR HGB CONC 34.5 g/dL (32.0-36.0); MEAN CORPUSCULAR VOLUME 85 fl (80-97); PLATELET COUNT 112 10^3/uL (150-450); RED BLOOD COUNT 3.65 10^6/uL (4.35-5.55); RED CELL DISTRIBUTION WIDTH 13.7 % (11.5-14.0); WHITE BLOOD COUNT 4.6 10^3/uL (4.0-10.5)
[2020-05-25 07:33] LABS: ANION GAP 6 (5-19); BLOOD UREA NITROGEN 39 mg/dL (7-20); CALCIUM 8.7 mg/dL (8.4-10.2); CARBON DIOXIDE 31 mmol/L (22-30); CHLORIDE 102 mmol/L (98-107); GLUCOSE 199 mg/dL (75-110)
[2020-05-25] MEDS: PENTOXIFYLLINE 400 MG TABLET.SA PO SCH ×2 (07:47→17:35)
[2020-05-25] MEDS: INSULIN LISPRO 100 UNIT/ML 3 ML VIAL SUBCUT SCH ×4 (07:47→21:50)
[2020-05-25] MEDS: DOCUSATE SODIUM 100 MG CAPSULE PO SCH (09:28)
[2020-05-25] MEDS: FUROSEMIDE INJ/PF 20 MG/2 ML SDV IV SCH (09:30)
[2020-05-25] MEDS: ENOXAPARIN SODIUM INJ 30 MG/0.3 ML DISP.SYRIN SUBCUT SCH (09:30)
[2020-05-25] MEDS: AZITHROMYCIN 250 MG TABLET PO SCH (09:30)
[2020-05-25] MEDS: NICOTINE 21 MG/24 HR PATCH.TD24 TD SCH (09:30)
[2020-05-25] MEDS: AMLODIPINE BESYLATE 10 MG TABLET PO SCH (09:30)
[2020-05-25] MEDS: METOPROLOL SUCCINATE 25 MG TAB.SR.24H PO SCH ×2 (09:30→21:49)
[2020-05-25] MEDS ORDERED: METFORMIN HCL 500 MG TABLET PO SCH (10:00)
--- NOTE | 2020-05-25 10:02 | PDOC PROGRESS REPORT ---
Subjective Date:: 05/25/20 Subjective:: LIZETTE MUNIZ is a 59 year old male with history of coronary artery disease status post AR in 2006 treated with a stent to an unknown vessel at [facility], hypertension, diabetes, obesity and ongoing tobacco use with 2 packs/day for the last 30 to 40 years who is consulted to our service for evaluation of elevated troponin and suspected heart failure. EMS was initially called to his home due to hip pain however he was found to be hypoxic with a pulse ox of 83% on room air as well as increased work of breathing. In the emergency room his temperature was mildly elevated to 99.3 among other findings. His chest x-ray was concerning for a developing pneumonia and CT scan of the chest revealed extensive, bilateral ground glass appearance concerning for COVID -19 pneumonia as well as small pleural effusions. Of note, the patient tested negative for COVID-19. He also had mildly elevated cardiac troponins which are now downtrending and peaked at 0.319. His telemetry shows normal sinus rhythm. This morning he feels better and has no cardiovascular complaints. He is anxious to go home. 05/25/2020: The patient had an uneventful night. He had been doing well, he was weaned off of oxygen completely and currently does not have an oxygen requirement. Unfortunately his net fluid balance did not be calculated as his urinary output because the patient does not want to use the urinal however he appears euvolemic today. He has no complaints this morning and specifically denies ischemic and heart failure symptoms. His telemetry demonstrated normal sinus rhythm without ventricular dysrhythmias. Of note, we did receive records from [facility] demonstrating that the patient had an inferior STEMI on 10/04/2006. He was treated with stenting of his PLB. Physical exam on 05/25/2020: GENERAL: Pleasant and conversational. Oriented x3 with normal mood. Not in acute distress. Well groomed and well developed. HEENT: Normocephalic, atraumatic. Pupils equal. Sclerae anicteric. Oropharynx moist. NECK: No JVD. No carotid bruits. LUNGS: Decreased breath sounds bilaterally, clear to auscultation bilaterally. Normal respiratory effort without the use of accessory muscles or intercostal retractions. CARDIOVASCULAR: Regular rate and rhythm, normal S1 and S2 without murmurs, rubs, or gallops. PMI not displaced. ABDOMEN: No masses or tenderness to palpation. No bruit. No splenomegaly or hepatomegaly. No abdominal aorta bruit noted. EXTREMITIES: No edema, no cyanosis, no clubbing. +2 pulses femoral and pedal pulses bilaterally. SKIN: No lesions or rashes. MUSCULOSKELETAL: No chest tenderness to palpation. NEUROLOGIC: Nonfocal. No gross sensory or motor deficits bilateral upper or lower extremities. Cardiac studies: Echocardiogram at [facility] on 05/23/2020: -EF 55 to 60%. -No gross regional wall motion abnormalities. -Mild RVE. -Mild LAE. -Mild MR, mild TR. -Moderate to severe pulmonary hypertension with pressures between 57 and 60 mmHg. -No prior studies for comparison. [facility] on 10/04/2006 at [facility]: -Left main: No disease. -LAD: Mild luminal irregularities. -D1: Normal. -Left circumflex: No disease. -OM1: No disease. -OM2: No disease. -RCA: Patent. -PLV: 100% occluded--> Vision 3.0 mm x 12 mm SHERRY. -PDA: Patent. Reason For Visit: ACUTE RESPIRATORY W/HYPOXIA Physical Exam Vital Signs: Temp Pulse Resp BP Pulse Ox 98.2 F 71 14 158/66 H 97 05/25/20 00:00 05/25/20 02:00 05/25/20 00:00 05/24/20 20:00 05/25/20 04:00 Intake & Output 05/23/20 05/24/20 05/25/20 06:59 06:59 06:59 Intake Total 2949 471 2756 Output Total 1275 Balance 1000 -399 1676 Weight 101.2 kg 100.8 kg 94 kg Results Laboratory Results: 05/24/20 04:42 05/24/20 04:42 05/22/20 05/22/20 05/22/20 11:47 11:47 18:08 Creatine Kinase 351 H Troponin I 0.128 NT-Pro-B Natriuret Pep 1600 H 05/23/20 05/23/20 05/24/20 01:10 05:53 04:42 Creatine Kinase Troponin I 0.319 0.229 NT-Pro-B Natriuret Pep 2250 H Impressions: Chest CT 05/22/20 00:00 IMPRESSION: EXTENSIVE GROUND-GLASS OPACITIES THROUGHOUT BOTH LUNGS CONCERNING FOR PNEUMONIA, POSSIBLY COVID- 19. SMALL PLEURAL EFFUSIONS. Head CT 05/22/20 00:00 IMPRESSION: NORMAL BRAIN CT WITHOUT CONTRAST. EVIDENCE OF ACUTE STROKE: NO. Chest X-Ray 05/22/20 11:12 IMPRESSION: DEVELOPING INFILTRATE IN THE RIGHT LUNG. 05/25/20 05:58 05/25/20 05:58 MCV 85 fl (80-97) 05/25/20 05:58 MCH 29.1 pg (27.0-33.4) 05/25/20 05:58 MCHC 34.5 g/dL (32.0-36.0) 05/25/20 05:58 RDW 13.7 % (11.5-14.0) 05/25/20 05:58 Seg Neutrophils % 79.2 % (42-78) H 05/22/20 11:47 Carbonic Acid 1.35 mmol/L (1.05-1.35) 05/22/20 13:12 HCO3/H2CO3 Ratio 18:1 05/22/20 13:12 ABG pH 7.36 (7.35-7.45) 05/22/20 13:12 ABG pCO2 44.9 mmHg (35-45) 05/22/20 13:12 ABG pO2 46.9 mmHg (80-100) L 05/22/20 13:12 ABG HCO3 24.9 mmol/L (20-24) H 05/22/20 13:12 ABG O2 Saturation 81.1 % (94-98) L 05/22/20 13:12 ABG Base Excess -0.8 mmol/L 05/22/20 13:12 FiO2 2L 05/22/20 13:12 Chloride 102 mmol/L (98-107) 05/25/20 05:58 Carbon Dioxide 31 mmol/L (22-30) H 05/25/20 05:58 Anion Gap 6 (5-19) 05/25/20 05:58 Est GFR ( Amer) 46 (>60) L 05/25/20 05:58 Glucose 199 mg/dL (75-110) H 05/25/20 05:58 Calcium 8.7 mg/dL (8.4-10.2) 05/25/20 05:58 Magnesium 2.0 mg/dL (1.6-2.3) 05/25/20 05:58 Ferritin 103.00 ng/mL (17.9-464.0) 05/22/20 18:08 Total Bilirubin 0.7 mg/dL (0.2-1.3) 05/22/20 11:47 AST 22 U/L (17-59) 05/22/20 11:47 Alkaline Phosphatase 60 U/L (38-126) 05/22/20 11:47 C-Reactive Protein 30.9 mg/L (<10.0) H 05/22/20 18:08 Total Protein 6.5 g/dL (6.3-8.2) 05/22/20 11:47 Albumin 3.6 g/dL (3.5-5.0) 05/22/20 11:47 Triglycerides 62 mg/dL (<150) 05/23/20 05:53 Cholesterol 111.97 mg/dL (0-200) 05/23/20 05:53 LDL Cholesterol Direct 53 mg/dL (<100) 05/23/20 05:53 VLDL Cholesterol 12.0 mg/dL (10-31) 05/23/20 05:53 HDL Cholesterol 45 mg/dL (>40) 05/23/20 05:53 TSH 0.39 uIU/mL (0.47-4.68) L 05/23/20 05:53 Urine Color YELLOW 05/23/20 07:30 Urine Appearance CLEAR 05/23/20 07:30 Urine pH 5.0 (5.0-9.0) 05/23/20 07:30 Ur Specific [place] 1.012 05/23/20 07:30 Urine Protein 100 mg/dL (NEGATIVE) H 05/23/20 07:30 Urine Glucose (UA) 50 mg/dL (NEGATIVE) H 05/23/20 07:30 Urine Ketones NEGATIVE mg/dL (NEGATIVE) 05/23/20 07:30 Urine Blood MODERATE (NEGATIVE) H 05/23/20 07:30 Urine Nitrite NEGATIVE (NEGATIVE) 05/23/20 07:30 Ur Leukocyte Esterase NEGATIVE (NEGATIVE) 05/23/20 07:30 Urine WBC (Auto) 1 /HPF 05/23/20 07:30 Urine RBC (Auto) 7 /HPF 05/23/20 07:30 05/22/20 05/22/20 05/22/20 11:47 11:47 18:08 Creatine Kinase 351 H Troponin I 0.128 NT-Pro-B Natriuret Pep 1600 H 05/23/20 05/23/20 05/24/20 01:10 05:53 04:42 Creatine Kinase Troponin I 0.319 0.229 NT-Pro-B Natriuret Pep 2250 H Current Medication List Generic Name Dose Route Start Last Admin Trade Name Freq PRN Reason Stop Dose Admin Acetaminophen 650 mg 05/22/20 17:30 Acetaminophen 325 Mg Tablet PO 06/21/20 17:29 Q4HP PRN FOR PAIN OR TEMP Al Hydrox/Mg Hydrox/Simethicone 30 ml 05/22/20 17:30 Mag Hydrox/Al Hydrox/Simeth Susp 30 Ml Udcup PO 06/21/20 17:29 Q6HP PRN HEARTBURN Albuterol/Ipratropium 3 ml 05/22/20 17:30 Ipratropium/Albuterol 0.5-2.5 Mg/3 Ml Ampul NEB 06/21/20 17:29 RTQ6HP PRN SHORTNESS OF BREATH Amlodipine Besylate 10 mg 05/24/20 10:00 05/25/20 09:30 Amlodipine Besylate 10 Mg Tablet PO 06/23/20 09:59 10 mg DAILY CHAUNCEY Administration Aspirin 81 mg 05/22/20 22:00 05/24/20 21:31 Aspirin 81 Mg Tablet, Chewable PO 06/21/20 21:59 81 mg QHS CHAUNCEY Administration Atorvastatin Calcium 80 mg 05/23/20 22:00 05/24/20 21:31 Atorvastatin Calcium 80 Mg Tablet PO 06/22/20 21:59 80 mg QHS CHAUNCEY Administration Azithromycin 250 mg 05/23/20 10:00 05/25/20 09:30 Azithromycin 250 Mg Tablet PO 05/30/20 09:59 250 mg DAILY CHAUNCEY Administration Dextrose 12.5 gm 05/22/20 17:35 Dextrose 50%-Water 25 Gm/50 Ml Disp.Syrin IV 06/21/20 17:34 PRN PRN FOR BG 50-69 IN ALERT PATIENT Protocol Dextrose 25 gm 05/22/20 17:35 Dextrose 50%-Water 25 Gm/50 Ml Disp.Syrin IV 06/21/20 17:34 PRN PRN PER PROTOCOL Protocol Docusate Sodium 100 mg 05/23/20 10:00 05/25/20 09:28 Docusate Sodium 100 Mg Capsule PO 06/22/20 09:59 Not Given DAILY CHAUNCEY Enoxaparin Sodium 30 mg 05/24/20 10:00 05/25/20 09:30 Enoxaparin Sodium Inj 30 Mg/0.3 Ml Disp.Syrin SUBCUT 06/23/20 09:59 30 mg DAILY CHAUNCEY Administration Furosemide 20 mg 05/23/20 10:00 05/25/20 09:30 Furosemide Inj/Pf 20 Mg/2 Ml Sdv IV 06/22/20 09:59 20 mg BID CHAUNCEY Administration Gabapentin 800 mg 05/23/20 22:00 05/25/20 05:11 Gabapentin 400 Mg Capsule PO 06/22/20 21:59 800 mg Q8 CHAUNCEY Administration Glucagon 1 mg 05/22/20 17:35 Glucagon,Human Recomb 1 Mg Inj IM 06/21/20 17:34 PRN PRN Evaluate for BG < 70 Protocol Glucose 15 gm 05/22/20 17:35 Dextrose 40% Gel 15 Gm Tube PO 06/21/20 17:34 PRN PRN FOR BG 50-69 IN ALERT PATIENT Protocol Glucose 30 gm 05/22/20 17:35 Dextrose 40% Gel 15 Gm Tube PO 06/21/20 17:34 PRN PRN FOR BG < 50 IN ALERT PATIENT Protocol Insulin Human Lispro 0 - 12 unit 05/22/20 22:00 05/25/20 07:47 Insulin Lispro 100 Unit/Ml 3 Ml Vial SUBCUT 06/21/20 21:59 4 unit ACHS CHAUNCEY Administration Protocol Metformin HCl 500 mg 05/25/20 10:00 Metformin Hcl 500 Mg Tablet PO 06/24/20 09:59 DAILY CHAUNCEY Metoprolol Succinate 25 mg 05/23/20 22:00 05/25/20 09:30 Metoprolol Succinate 25 Mg Tab.Sr.24h PO 06/22/20 21:59 25 mg Q12 CHAUNCEY Administration Nicotine 1 each 05/23/20 10:00 05/25/20 09:30 Nicotine 21 Mg/24 Hr Patch.Td24 TD 06/22/20 09:59 1 each DAILY CHAUNCEY Administration Nitroglycerin 1 tab 05/23/20 09:30 Nitroglycerin 0.4 Mg/Tab 25 Tab/Bottle SL 06/22/20 09:29 Q5MP PRN FOR CHEST PAIN Pentoxifylline 400 mg 05/24/20 08:00 05/25/20 07:47 Pentoxifylline 400 Mg Tablet.Sa PO 06/23/20 07:59 400 mg BIDACBS CHAUNCEY Administration Promethazine HCl 6.25 mg 05/22/20 17:30 Promethazine Hcl Inj 25 Mg/1 Ml Vial IV 06/21/20 17:29 Q4HP PRN FOR NAUSEA/VOMITING Discontinued Medications Generic Name Dose Route Start Last Admin Trade Name Freq PRN Reason Stop Dose Admin Albuterol/Ipratropium 9 ml 05/22/20 16:28 05/22/20 16:52 Ipratropium/Albuterol 0.5-2.5 Mg/3 Ml Ampul NEB 05/22/20 16:29 9 ml NOW ONE Administration Atorvastatin Calcium 20 mg 05/22/20 22:00 05/22/20 22:07 Atorvastatin Calcium 20 Mg Tablet PO 06/21/20 21:59 20 mg QHS CHAUNCEY Administration Azithromycin 500 mg 05/22/20 16:27 05/22/20 16:52 Azithromycin 250 Mg Tablet PO 05/22/20 16:28 500 mg NOW ONE Administration Ceftriaxone Sodium 1,000 mg 05/22/20 16:27 05/22/20 16:52 Ceftriaxone Inj 1000 Mg Vial IV 05/22/20 16:28 1,000 mg IVBAG (ED) ONE Administration Dexamethasone Sodium Phosphate 10 mg 05/22/20 15:50 05/22/20 16:12 Dexamethasone Sod Phos Inj 10 Mg/1 Ml Vial IV 05/22/20 15:51 10 mg NOW ONE Administration Enoxaparin Sodium 30 mg 05/23/20 10:00 Enoxaparin Sodium Inj 30 Mg/0.3 Ml Disp.Syrin SUBCUT 06/22/20 09:59 DAILY CHAUNCEY Enoxaparin Sodium 100 mg 05/22/20 22:00 05/22/20 22:07 Enoxaparin Sodium Inj 100 Mg/1 Ml Disp.Syrin SUBCUT 06/21/20 21:59 Not Given Q12 CHAUNCEY Enoxaparin Sodium 100 mg 05/23/20 10:00 05/23/20 21:33 Enoxaparin Sodium Inj 100 Mg/1 Ml Disp.Syrin SUBCUT 06/21/20 09:59 100 mg Q12 CHAUNCEY Administration Furosemide 40 mg 05/22/20 17:30 05/22/20 18:10 Furosemide Inj/Pf 40 Mg/4 Ml Sdv IV 05/22/20 17:31 40 mg NOW ONE Administration Hydromorphone HCl 0.5 mg 05/22/20 15:50 05/22/20 16:12 Hydromorphone Hcl Inj/Pf 2 Mg/Ml Ampule IV 05/22/20 15:51 0.5 mg NOW ONE Administration Sodium Chloride 1,000 mls @ 0 mls/hr 05/22/20 15:46 05/22/20 16:50 Nacl 0.9% 1000 Ml Iv Soln IV 05/22/20 15:47 Infused BOLUS ONE Infusion Wide Open Lorazepam 1 mg 05/22/20 15:49 05/22/20 16:11 Lorazepam Inj 2 Mg/1 Ml Vial IV 05/22/20 15:50 1 mg NOW ONE Administration Metoprolol Succinate 25 mg 05/23/20 10:00 05/23/20 11:14 Metoprolol Succinate 25 Mg Tab.Sr.24h PO 06/22/20 09:59 25 mg DAILY CHAUNCEY Administration Nicotine 1 each 05/22/20 18:15 05/22/20 18:10 Nicotine 21 Mg/24 Hr Patch.Td24 TD 05/22/20 18:16 Not Given NOW ONE Assessment & Plan - Diagnosis (1) Heart failure with preserved ejection fraction Qualifiers: Heart failure chronicity: acute Qualified Code(s): I50.31 - Acute diastolic (congestive) heart failure Is this a current diagnosis for this admission?: Yes Plan: 59-year-old male with known history of coronary artery disease however not known to have heart failure in the past. Clinically he appears euvolemic and much improved since admission. He continues to deny ischemic symptoms. Luckily enough, his echocardiogram demonstrated a normal ejection fraction without gross regional wall motion abnormalities. Recommendations: -Discontinue IV Lasix and start p.o. Lasix 40 mg daily. -Restrict fluid intake to 1500 cc daily. -Low sodium diet, less than 1500 mg daily. -Strict intake and output. -Daily weights. -Daily BMP and magnesium and replace electrolytes as needed. -Lexiscan nuclear stress test tomorrow. (2) Elevated troponin I level Is this a current diagnosis for this admission?: Yes Plan: ACS versus type II AR, likely type II AR given his low level elevated and normal ejection fraction without gross regional wall motion abnormalities. His LHC back in 2006 only revealed 100% occluded PLB but other vessels were free of significant disease. The patient has remained hemodynamically and electrically stable, without ischemic symptoms therefore I believe it is safe to proceed with Lexiscan MPS tomorrow given the fact that his creatinine continues to be abnormally elevated and I am concerned about worsening renal dysfunction with left heart catheterization. Recommendations: -Continue with current medical management. -Lexiscan MPS on 05/26/2020. (3) Coronary artery disease Qualifiers: Associated angina: without angina Is this a current diagnosis for this admission?: Yes Plan: Please see above for details and recommendations. (4) JANETTE (acute kidney injury) Is this a current diagnosis for this admission?: Yes Plan: Further management per hospitalist team. (5) CAP (community acquired pneumonia) Qualifiers: Laterality: right Lung location: unspecified part of lung Qualified Code(s): J18.9 - Pneumonia, unspecified organism Is this a current diagnosis for this admission?: Yes Plan: Further management per hospitalist team.
[2020-05-25 10:26] LABS: APPEARANCE,URINE CLEAR; BILIRUBIN,URINE NEGATIVE (NEGATIVE); COLOR,URINE YELLOW; GLUCOSE, URINE 50 mg/dL (NEGATIVE); KETONES,URINE NEGATIVE (NEGATIVE); LEUKOCYTE ESTERASE,URINE NEGATIVE (NEGATIVE); NITRITE,URINE NEGATIVE (NEGATIVE); PROTEIN,URINE >=500 mg/dL (NEGATIVE); URINE SPECIFIC GRAVITY 1.014
--- NOTE | 2020-05-25 17:29 | PDOC PROGRESS REPORT ---
Subjective Date:: 05/25/20 Subjective:: LIZETTE MUNIZ is a 59 year old male with a past medical history significant for [place], cardiac cath with 1 stent (2006), hypertension, diabetes mellitus, obesity, and tobacco dependence with continuous use who was admitted 05/22/20 for acute respiratory failure with hypoxia, CHF exacerbation, and elevated troponin. Patient seen on morning rounds. He is seen walking around room with O2 sat greater than 95% on room air. Overall feeling well with no complaints today. Scheduled for stress test tomorrow morning. Denies ischemic or heart failure symptoms. Discussed with nursing no concerns or complaints today. Reason For Visit: ACUTE RESPIRATORY W/HYPOXIA Physical Exam Vital Signs: Temp Pulse Resp BP Pulse Ox 97.5 F 65 16 141/61 H 97 05/25/20 10:45 05/25/20 14:00 05/25/20 12:03 05/25/20 10:45 05/25/20 12:03 Intake & Output 05/24/20 05/25/20 05/26/20 06:59 06:59 06:59 Intake Total 876 1676 2210 Output Total 1275 1150 Balance -399 1676 1060 Weight 100.8 kg 94 kg Additional comments: General appearance: PRESENT: no acute distress, obese, well-developed, well- nourished Respiratory exam: PRESENT: Clear lung sounds bilaterally, symmetrical and unlabored with Supplemental oxygen by nasal cannula. ABSENT: rales, rhonchi, wheezes Cardiovascular exam: PRESENT: RRR. ABSENT: diastolic murmur, rubs, systolic murmur Extremities exam: PRESENT: full ROM, no evidence of edema. ABSENT: calf tenderness, clubbing, pedal edema Musculoskeletal exam: PRESENT: ambulatory Neurological exam: PRESENT: alert, awake, oriented to person, oriented to place, oriented to time, oriented to situation, CN II-XII grossly intact. ABSENT: motor sensory deficit Psychiatric exam: PRESENT: normal mood Skin exam: PRESENT: dry, intact, warm. ABSENT: cyanosis, rash Results Laboratory Results: 05/25/20 05:58 05/25/20 05:58 05/25/20 05/25/20 05/25/20 05:58 05:58 09:56 WBC 4.6 RBC 3.65 L Hgb 10.6 L Hct 30.9 L MCV 85 MCH 29.1 MCHC 34.5 RDW 13.7 Plt Count 112 L Sodium 138.6 Potassium 4.0 Chloride 102 Carbon Dioxide 31 H Anion Gap 6 BUN 39 H Creatinine 1.82 H Est GFR ( Amer) 46 L Glucose 199 H Calcium 8.7 Magnesium 2.0 Urine Color YELLOW Urine Appearance CLEAR Urine pH 7.0 Ur Specific Nimitz 1.014 Urine Protein >=500 H Urine Glucose (UA) 50 H Urine Ketones NEGATIVE Urine Blood MODERATE H Urine Nitrite NEGATIVE Ur Leukocyte Esterase NEGATIVE Urine WBC (Auto) 1 Urine RBC (Auto) 10 05/22/20 05/22/20 05/22/20 11:47 11:47 18:08 Creatine Kinase 351 H Troponin I 0.128 NT-Pro-B Natriuret Pep 1600 H 05/23/20 05/23/20 05/24/20 01:10 05:53 04:42 Creatine Kinase Troponin I 0.319 0.229 NT-Pro-B Natriuret Pep 2250 H Impressions: Chest CT 05/22/20 00:00 IMPRESSION: EXTENSIVE GROUND-GLASS OPACITIES THROUGHOUT BOTH LUNGS CONCERNING FOR PNEUMONIA, POSSIBLY COVID- 19. SMALL PLEURAL EFFUSIONS. Head CT 05/22/20 00:00 IMPRESSION: NORMAL BRAIN CT WITHOUT CONTRAST. EVIDENCE OF ACUTE STROKE: NO. Chest X-Ray 05/22/20 11:12 IMPRESSION: DEVELOPING INFILTRATE IN THE RIGHT LUNG. Assessment and Plan - Diagnosis (1) Heart failure with preserved ejection fraction Qualifiers: Heart failure chronicity: acute Qualified Code(s): I50.31 - Acute diastolic (congestive) heart failure Is this a current diagnosis for this admission?: Yes Plan: On initial presentation: respiratory distress, hypoxia, tachycardia, hypertension, tachypnea, +3 pitting edema BLE, bilateral crackles, and JVD. - Lungs are clear to auscultation, without pitting edema today. - Reportedly improved from yesterday. Cardiology consulted, note reviewed in detail recommendations appreciated as discussed below. - Echocardiogram at [facility] on 05/23/2020: EF 55 to 60%. No gross regional wall motion abnormalities. Mild RVE. Mild LAE. Mild MR, mild TR. Moderate to severe pulmonary hypertension with pressures between 57 and 60 mmHg. No prior studies for comparison. - Transition form Iv lasix to po. - Restrict fluid intake, low-sodium diet, strict I's and O's, daily weights. - Daily BMP and magnesium and replace electrolytes as needed. 40mg Lasix po daily Continue Toprol XL (2) Elevated troponin I level Is this a current diagnosis for this admission?: Yes Plan: Denies ischemic symptoms. Unclear if demand mismatch ischemia in setting of CHF exacerbation and hypoxia or ACS event. - Troponin 0.128-> 0.319-> 0.229 - proBNP 1600 Cardiology is consulted, note reviewed in detail, recommendations as follows. - Recommends stress test versus left heart cath for further risk stratification prior to discharge. - Stress test scheduled 05/26 (in the lieu of creatinine greater than 1.5.) Discontinued full dose Lovenox per cardiology recommendations - Platelets trending downward slowly Continue daily aspirin and statin therapy. (3) Coronary artery disease Qualifiers: Associated angina: without angina Is this a current diagnosis for this admission?: Yes Plan: History of [place] in 2006, underwent stenting [facility] vessel at [facility]. - Records obtained and reviewed - Treatment as discussed above - Stress test scheduled 05/26. (4) Acute respiratory failure with hypoxia Is this a current diagnosis for this admission?: Yes Plan: Resolved at this time. Requiring no supplemental O2. Multifocal in nature, CHF exacerbation, less likely CAP. With significant improvement in O2 sats requirement with diuresis thus likely secondary to CHF exacerbation. - D. dimer is elevated, unfortunately, can not get CTA r/t renal function. (Lovenox therapy as discussed above) - Prior ABG shows hypoxia (paO2 46.9 on 2lpm). - CT Chest shows bilateral groundglass opacities throughout. Cnt As needed Duonebs. Avoid sedating medications in patient with hypoxia. Remaining management as above. (5) JANETTE (acute kidney injury) Is this a current diagnosis for this admission?: Yes Plan: Initial presentation patient was volume overloaded with pitting edema and crackles, this has since improved patient is without pitting edema and with lungs CTA today. - Likely secondary to acute CHF exacerbation. - Slight downward trend in creatinine; 2.28-> 2.29-> 2.13 -> 1.77 -> 1.82 - Unknown baseline. Transition to p.o. Lasix. Otherwise avoid nephrotoxic medications and renally dose were able. Follow-up chemistries. (6) Obesity (BMI 30-39.9) Is this a current diagnosis for this admission?: Yes Plan: Placed on consistent carb/cardiac diet. Dietary discretion and lifestyle modification encouraged. (7) Tobacco dependence Is this a current diagnosis for this admission?: Yes Plan: Smoking cessation encouraged. Nicotine replacement therapies provided. (8) Altered mental status Qualifiers: Altered mental status type: delirium Qualified Code(s): R41.0 - Disorientation, unspecified Is this a current diagnosis for this admission?: Yes Plan: This resolved under previous providers care. He is A&Ox4 on my evaluation. Head CT negative for acute findings. This improved with treatment as above for CHF, likely secondary to hypoxia, continue treatment as above.. (9) Diabetes Qualifiers: Diabetes mellitus type: type 2 Diabetes mellitus intermodal dispatcher insulin use: without penitentiary use Is this a current diagnosis for this admission?: Yes Plan: Noted as new diagnosis by previous provider. Discussed with patient states monitoring history of diabetes diagnosis. Typically takes 90 units of Lantus at night. Blood sugars have been running in the 200s typically requiring 4 units sliding scale insulin with meals. Will initiate 10 units Lantus nightly in addition to sliding scale insulin. A1C 7.7% Patient is placed on a consistent carb diet. Accu-Cheks before meals and at bedtime with Humalog for sliding scale coverage. Hypoglycemia protocol in place. - Plan Summary Summary: Overall significant improvement in patient presentation. po diuresis now. Stress test scheduled for tomorrow morning. Likely will discharge home following. - Time Time Spent with patient: 25-34 minutes Smoking Cessation Education: 3 to 10 minutes Medications reviewed and adjusted accordingly: Yes Anticipated Discharge Disposition: Home, Self Care Anticipated Discharge Timeframe: within 24 hours
[2020-05-25] MEDS: ASPIRIN 81 MG TABLET, CHEWABLE PO SCH (21:49)
[2020-05-25] MEDS: ATORVASTATIN CALCIUM 80 MG TABLET PO SCH (21:49)
[2020-05-25] MEDS ORDERED: INSULIN GLARGINE,HUM.REC.ANLOG 1,000 UNIT/10 ML VIAL SUBCUT SCH (22:00)
[2020-05-26] MEDS: GABAPENTIN 400 MG CAPSULE PO SCH (05:20)
[2020-05-26 07:22] LABS: ANION GAP 10 (5-19); BLOOD UREA NITROGEN 33 mg/dL (7-20); CARBON DIOXIDE 25 mmol/L (22-30); CHLORIDE 104 mmol/L (98-107); GLUCOSE 186 mg/dL (75-110); POTASSIUM 4.1 mmol/L (3.6-5.0)
[2020-05-26] MEDS: INSULIN LISPRO 100 UNIT/ML 3 ML VIAL SUBCUT SCH (08:28)
[2020-05-26] MEDS: PENTOXIFYLLINE 400 MG TABLET.SA PO SCH (08:28)
--- NOTE | 2020-05-26 09:44 | PDOC PROGRESS REPORT ---
Subjective Date:: 05/26/20 Subjective:: LIZETTE MUNIZ is a 59 year old male with history of coronary artery disease status post ID in 2006 treated with a stent to an unknown vessel at [facility], hypertension, diabetes, obesity and ongoing tobacco use with 2 packs/day for the last 30 to 40 years who is consulted to our service for evaluation of elevated troponin and suspected heart failure. EMS was initially called to his home due to hip pain however he was found to be hypoxic with a pulse ox of 83% on room air as well as increased work of breathing. In the emergency room his temperature was mildly elevated to 99.3 among other findings. His chest x-ray was concerning for a developing pneumonia and CT scan of the chest revealed extensive, bilateral ground glass appearance concerning for COVID -19 pneumonia as well as small pleural effusions. Of note, the patient tested negative for COVID-19. He also had mildly elevated cardiac troponins which are now downtrending and peaked at 0.319. His telemetry shows normal sinus rhythm. This morning he feels better and has no cardiovascular complaints. He is anxious to go home. 05/26/2020: The patient had an uneventful night. He feels 100% improved. He was scheduled to undergo pharmacological nuclear stress test this morning for further r estratification prior to considering discharging the patient however and, despite the visible n.p.o. sign on his door prior and an n.p.o. order in his chart, he was fed breakfast this morning. He has remained free of ischemic symptoms throughout his hospitalization and his telemetry has not demonstrated any ventricular dysrhythmias. Of note, we did receive records from [facility] demonstrating that the patient had an inferior STEMI on 10/04/2006. He was treated with stenting of his PLB. Important to note is that his fluid restriction has not been enforced. Physical exam on 05/26/2020: GENERAL: Pleasant and conversational. Oriented x3 with normal mood. Not in acute distress. Well groomed and well developed. HEENT: Normocephalic, atraumatic. Pupils equal. Sclerae anicteric. Oropharynx moist. NECK: No JVD. No carotid bruits. LUNGS: Decreased breath sounds bilaterally, clear to auscultation bilaterally. Normal respiratory effort without the use of accessory muscles or intercostal retractions. CARDIOVASCULAR: Regular rate and rhythm, normal S1 and S2 without murmurs, rubs, or gallops. PMI not displaced. ABDOMEN: No masses or tenderness to palpation. No bruit. No splenomegaly or hepatomegaly. No abdominal aorta bruit noted. EXTREMITIES: No edema, no cyanosis, no clubbing. +2 pulses femoral and pedal pulses bilaterally. SKIN: No lesions or rashes. MUSCULOSKELETAL: No chest tenderness to palpation. NEUROLOGIC: Nonfocal. No gross sensory or motor deficits bilateral upper or lower extremities. Cardiac studies: Echocardiogram at [facility] on 05/23/2020: -EF 55 to 60%. -No gross regional wall motion abnormalities. -Mild RVE. -Mild LAE. -Mild MR, mild TR. -Moderate to severe pulmonary hypertension with pressures between 57 and 60 mmHg. -No prior studies for comparison. C on 10/04/2006 at [facility]: -Left main: No disease. -LAD: Mild luminal irregularities. -D1: Normal. -Left circumflex: No disease. -OM1: No disease. -OM2: No disease. -RCA: Patent. -PLV: 100% occluded--> Vision 3.0 mm x 12 mm SHERRY. -PDA: Patent. Reason For Visit: ACUTE RESPIRATORY W/HYPOXIA Physical Exam Vital Signs: Temp Pulse Resp BP Pulse Ox 97.8 F 63 18 147/63 H 93 05/26/20 00:06 05/26/20 02:00 05/26/20 00:06 05/26/20 00:06 05/26/20 00:06 Intake & Output 05/25/20 05/26/20 05/27/20 06:59 06:59 06:59 Intake Total 1676 2410 Output Total 1750 Balance 1676 660 Weight 94 kg 90 kg Results Laboratory Results: 05/25/20 05:58 05/25/20 05/25/20 05/25/20 05:58 05:58 09:56 WBC 4.6 RBC 3.65 L Hgb 10.6 L Hct 30.9 L MCV 85 MCH 29.1 MCHC 34.5 RDW 13.7 Plt Count 112 L Sodium 138.6 Potassium 4.0 Chloride 102 Carbon Dioxide 31 H Anion Gap 6 BUN 39 H Creatinine 1.82 H Est GFR ( Amer) 46 L Glucose 199 H Calcium 8.7 Magnesium 2.0 Urine Color YELLOW Urine Appearance CLEAR Urine pH 7.0 Ur Specific Dierks 1.014 Urine Protein >=500 H Urine Glucose (UA) 50 H Urine Ketones NEGATIVE Urine Blood MODERATE H Urine Nitrite NEGATIVE Ur Leukocyte Esterase NEGATIVE Urine WBC (Auto) 1 Urine RBC (Auto) 10 05/22/20 05/22/20 05/22/20 11:47 11:47 18:08 Creatine Kinase 351 H Troponin I 0.128 NT-Pro-B Natriuret Pep 1600 H 05/23/20 05/23/20 05/24/20 01:10 05:53 04:42 Creatine Kinase Troponin I 0.319 0.229 NT-Pro-B Natriuret Pep 2250 H Impressions: Chest CT 05/22/20 00:00 IMPRESSION: EXTENSIVE GROUND-GLASS OPACITIES THROUGHOUT BOTH LUNGS CONCERNING FOR PNEUMONIA, POSSIBLY COVID- 19. SMALL PLEURAL EFFUSIONS. Head CT 05/22/20 00:00 IMPRESSION: NORMAL BRAIN CT WITHOUT CONTRAST. EVIDENCE OF ACUTE STROKE: NO. Chest X-Ray 05/22/20 11:12 IMPRESSION: DEVELOPING INFILTRATE IN THE RIGHT LUNG. 05/25/20 05:58 05/26/20 06:13 MCV 85 fl (80-97) 05/25/20 05:58 MCH 29.1 pg (27.0-33.4) 05/25/20 05:58 MCHC 34.5 g/dL (32.0-36.0) 05/25/20 05:58 RDW 13.7 % (11.5-14.0) 05/25/20 05:58 Seg Neutrophils % 79.2 % (42-78) H 05/22/20 11:47 Carbonic Acid 1.35 mmol/L (1.05-1.35) 05/22/20 13:12 HCO3/H2CO3 Ratio 18:1 05/22/20 13:12 ABG pH 7.36 (7.35-7.45) 05/22/20 13:12 ABG pCO2 44.9 mmHg (35-45) 05/22/20 13:12 ABG pO2 46.9 mmHg (80-100) L 05/22/20 13:12 ABG HCO3 24.9 mmol/L (20-24) H 05/22/20 13:12 ABG O2 Saturation 81.1 % (94-98) L 05/22/20 13:12 ABG Base Excess -0.8 mmol/L 05/22/20 13:12 FiO2 2L 05/22/20 13:12 Chloride 104 mmol/L (98-107) 05/26/20 06:13 Carbon Dioxide 25 mmol/L (22-30) 05/26/20 06:13 Anion Gap 10 (5-19) 05/26/20 06:13 Est GFR ( Amer) 53 (>60) L 05/26/20 06:13 Glucose 186 mg/dL (75-110) H 05/26/20 06:13 Calcium 9.0 mg/dL (8.4-10.2) 05/26/20 06:13 Magnesium 2.0 mg/dL (1.6-2.3) 05/25/20 05:58 Ferritin 103.00 ng/mL (17.9-464.0) 05/22/20 18:08 Total Bilirubin 0.7 mg/dL (0.2-1.3) 05/22/20 11:47 AST 22 U/L (17-59) 05/22/20 11:47 Alkaline Phosphatase 60 U/L (38-126) 05/22/20 11:47 C-Reactive Protein 30.9 mg/L (<10.0) H 05/22/20 18:08 Total Protein 6.5 g/dL (6.3-8.2) 05/22/20 11:47 Albumin 3.6 g/dL (3.5-5.0) 05/22/20 11:47 Triglycerides 62 mg/dL (<150) 05/23/20 05:53 Cholesterol 111.97 mg/dL (0-200) 05/23/20 05:53 LDL Cholesterol Direct 53 mg/dL (<100) 05/23/20 05:53 VLDL Cholesterol 12.0 mg/dL (10-31) 05/23/20 05:53 HDL Cholesterol 45 mg/dL (>40) 05/23/20 05:53 TSH 0.39 uIU/mL (0.47-4.68) L 05/23/20 05:53 Urine Color YELLOW 05/25/20 09:56 Urine Appearance CLEAR 05/25/20 09:56 Urine pH 7.0 (5.0-9.0) 05/25/20 09:56 Ur Specific Dierks 1.014 12/23/20 09:56 Urine Protein >=500 mg/dL (NEGATIVE) H 05/25/20 09:56 Urine Glucose (UA) 50 mg/dL (NEGATIVE) H 05/25/20 09:56 Urine Ketones NEGATIVE mg/dL (NEGATIVE) 05/25/20 09:56 Urine Blood MODERATE (NEGATIVE) H 05/25/20 09:56 Urine Nitrite NEGATIVE (NEGATIVE) 05/25/20 09:56 Ur Leukocyte Esterase NEGATIVE (NEGATIVE) 05/25/20 09:56 Urine WBC (Auto) 1 /HPF 05/25/20 09:56 Urine RBC (Auto) 10 /HPF 05/25/20 09:56 05/22/20 05/22/20 05/22/20 11:47 11:47 18:08 Creatine Kinase 351 H Troponin I 0.128 NT-Pro-B Natriuret Pep 1600 H 05/23/20 05/23/20 05/24/20 01:10 05:53 04:42 Creatine Kinase Troponin I 0.319 0.229 NT-Pro-B Natriuret Pep 2250 H Current Medication List Generic Name Dose Route Start Last Admin Trade Name Freq PRN Reason Stop Dose Admin Acetaminophen 650 mg 05/22/20 17:30 Acetaminophen 325 Mg Tablet PO 06/21/20 17:29 Q4HP PRN FOR PAIN OR TEMP Al Hydrox/Mg Hydrox/Simethicone 30 ml 05/22/20 17:30 Mag Hydrox/Al Hydrox/Simeth Susp 30 Ml Udcup PO 06/21/20 17:29 Q6HP PRN HEARTBURN Albuterol/Ipratropium 3 ml 05/22/20 17:30 Ipratropium/Albuterol 0.5-2.5 Mg/3 Ml Ampul NEB 06/21/20 17:29 RTQ6HP PRN SHORTNESS OF BREATH Amlodipine Besylate 10 mg 05/24/20 10:00 05/25/20 09:30 Amlodipine Besylate 10 Mg Tablet PO 06/23/20 09:59 10 mg DAILY CHAUNCEY Administration Aspirin 81 mg 05/22/20 22:00 05/25/20 21:49 Aspirin 81 Mg Tablet, Chewable PO 06/21/20 21:59 81 mg QHS CHAUNCEY Administration Atorvastatin Calcium 80 mg 05/23/20 22:00 05/25/20 21:49 Atorvastatin Calcium 80 Mg Tablet PO 06/22/20 21:59 80 mg QHS CHAUNCEY Administration Azithromycin 250 mg 05/23/20 10:00 05/25/20 09:30 Azithromycin 250 Mg Tablet PO 05/30/20 09:59 250 mg DAILY CHAUNCEY Administration Dextrose 12.5 gm 05/22/20 17:35 Dextrose 50%-Water 25 Gm/50 Ml Disp.Syrin IV 06/21/20 17:34 PRN PRN FOR BG 50-69 IN ALERT PATIENT Protocol Dextrose 25 gm 05/22/20 17:35 Dextrose 50%-Water 25 Gm/50 Ml Disp.Syrin IV 06/21/20 17:34 PRN PRN PER PROTOCOL Protocol Docusate Sodium 100 mg 05/23/20 10:00 05/25/20 09:28 Docusate Sodium 100 Mg Capsule PO 06/22/20 09:59 Not Given DAILY CHAUNCEY Enoxaparin Sodium 30 mg 05/24/20 10:00 05/25/20 09:30 Enoxaparin Sodium Inj 30 Mg/0.3 Ml Disp.Syrin SUBCUT 06/23/20 09:59 30 mg DAILY CHAUNCEY Administration Furosemide 20 mg 05/26/20 10:00 Furosemide 20 Mg Tablet PO 06/25/20 09:59 DAILY CHAUNCEY Gabapentin 800 mg 05/23/20 22:00 05/26/20 05:20 Gabapentin 400 Mg Capsule PO 06/22/20 21:59 Not Given Q8 CHAUNCEY Glucagon 1 mg 05/22/20 17:35 Glucagon,Human Recomb 1 Mg Inj IM 06/21/20 17:34 PRN PRN Evaluate for BG < 70 Protocol Glucose 15 gm 05/22/20 17:35 Dextrose 40% Gel 15 Gm Tube PO 06/21/20 17:34 PRN PRN FOR BG 50-69 IN ALERT PATIENT Protocol Glucose 30 gm 05/22/20 17:35 Dextrose 40% Gel 15 Gm Tube PO 06/21/20 17:34 PRN PRN FOR BG < 50 IN ALERT PATIENT Protocol Insulin Glargine 10 unit 05/25/20 22:00 05/25/20 21:49 Insulin Glargine,Hum.Rec.Anlog 1,000 Unit/10 Ml Vial SUBCUT 06/24/20 21:59 10 unit QHS CHAUNCEY Administration Insulin Human Lispro 0 - 12 unit 05/22/20 22:00 05/26/20 08:28 Insulin Lispro 100 Unit/Ml 3 Ml Vial SUBCUT 06/21/20 21:59 2 unit ACHS CHAUNCEY Administration Protocol Metoprolol Succinate 25 mg 05/23/20 22:00 05/25/20 21:49 Metoprolol Succinate 25 Mg Tab.Sr.24h PO 06/22/20 21:59 25 mg Q12 CHAUNCEY Administration Nicotine 1 each 05/23/20 10:00 05/25/20 09:30 Nicotine 21 Mg/24 Hr Patch.Td24 TD 06/22/20 09:59 1 each DAILY CHAUNCEY Administration Nitroglycerin 1 tab 05/23/20 09:30 Nitroglycerin 0.4 Mg/Tab 25 Tab/Bottle SL 06/22/20 09:29 Q5MP PRN FOR CHEST PAIN Pentoxifylline 400 mg 05/24/20 08:00 05/26/20 08:28 Pentoxifylline 400 Mg Tablet.Sa PO 06/23/20 07:59 400 mg BIDACBS CHAUNCEY Administration Promethazine HCl 6.25 mg 05/22/20 17:30 Promethazine Hcl Inj 25 Mg/1 Ml Vial IV 06/21/20 17:29 Q4HP PRN FOR NAUSEA/VOMITING Discontinued Medications Generic Name Dose Route Start Last Admin Trade Name Freq PRN Reason Stop Dose Admin Albuterol/Ipratropium 9 ml 05/22/20 16:28 05/22/20 16:52 Ipratropium/Albuterol 0.5-2.5 Mg/3 Ml Ampul NEB 05/22/20 16:29 9 ml NOW ONE Administration Atorvastatin Calcium 20 mg 05/22/20 22:00 05/22/20 22:07 Atorvastatin Calcium 20 Mg Tablet PO 06/21/20 21:59 20 mg QHS CHAUNCEY Administration Azithromycin 500 mg 05/22/20 16:27 05/22/20 16:52 Azithromycin 250 Mg Tablet PO 05/22/20 16:28 500 mg NOW ONE Administration Ceftriaxone Sodium 1,000 mg 05/22/20 16:27 05/22/20 16:52 Ceftriaxone Inj 1000 Mg Vial IV 05/22/20 16:28 1,000 mg IVBAG (ED) ONE Administration Dexamethasone Sodium Phosphate 10 mg 05/22/20 15:50 05/22/20 16:12 Dexamethasone Sod Phos Inj 10 Mg/1 Ml Vial IV 05/22/20 15:51 10 mg NOW ONE Administration Enoxaparin Sodium 30 mg 05/23/20 10:00 Enoxaparin Sodium Inj 30 Mg/0.3 Ml Disp.Syrin SUBCUT 06/22/20 09:59 DAILY CHAUNCEY Enoxaparin Sodium 100 mg 05/22/20 22:00 05/22/20 22:07 Enoxaparin Sodium Inj 100 Mg/1 Ml Disp.Syrin SUBCUT 06/21/20 21:59 Not Given Q12 CHAUNCEY Enoxaparin Sodium 100 mg 05/23/20 10:00 05/23/20 21:33 Enoxaparin Sodium Inj 100 Mg/1 Ml Disp.Syrin SUBCUT 06/21/20 09:59 100 mg Q12 CHAUNCEY Administration Furosemide 40 mg 05/22/20 17:30 05/22/20 18:10 Furosemide Inj/Pf 40 Mg/4 Ml Sdv IV 05/22/20 17:31 40 mg NOW ONE Administration Furosemide 20 mg 05/23/20 10:00 05/25/20 09:30 Furosemide Inj/Pf 20 Mg/2 Ml Sdv IV 06/22/20 09:59 20 mg BID CHAUNCEY Administration Hydromorphone HCl 0.5 mg 05/22/20 15:50 05/22/20 16:12 Hydromorphone Hcl Inj/Pf 2 Mg/Ml Ampule IV 05/22/20 15:51 0.5 mg NOW ONE Administration Sodium Chloride 1,000 mls @ 0 mls/hr 05/22/20 15:46 05/22/20 16:50 Nacl 0.9% 1000 Ml Iv Soln IV 05/22/20 15:47 Infused BOLUS ONE Infusion Wide Open Lorazepam 1 mg 05/22/20 15:49 05/22/20 16:11 Lorazepam Inj 2 Mg/1 Ml Vial IV 05/22/20 15:50 1 mg NOW ONE Administration Metformin HCl 500 mg 05/25/20 10:00 05/25/20 10:37 Metformin Hcl 500 Mg Tablet PO 06/24/20 09:59 Not Given DAILY CHAUNCEY Metoprolol Succinate 25 mg 05/23/20 10:00 05/23/20 11:14 Metoprolol Succinate 25 Mg Tab.Sr.24h PO 06/22/20 09:59 25 mg DAILY CHAUNCEY Administration Nicotine 1 each 05/22/20 18:15 05/22/20 18:10 Nicotine 21 Mg/24 Hr Patch.Td24 TD 05/22/20 18:16 Not Given NOW ONE Assessment & Plan - Diagnosis (1) Heart failure with preserved ejection fraction Qualifiers: Heart failure chronicity: acute Qualified Code(s): I50.31 - Acute diastolic (congestive) heart failure Is this a current diagnosis for this admission?: Yes Plan: 59-year-old male with known history of coronary artery disease however not known to have heart failure in the past. Clinically he is now euvolemic and 100% improved since admission. He continues to deny ischemic symptoms. Luckily enough, his echocardiogram demonstrated a normal ejection fraction without gross regional wall motion abnormalities. His blood pressure is not at goal. Unfortunately the patient was fed breakfast this morning therefore nuclear stress test could not be performed today and, to complicate matters, the patient does not have medical insurance. I discussed with him at length the importance of risk stratification prior to discharge and we spoke about the options of transferring the patient to [facility] for C later today however the patient declined and wants to go home. Once again, he has remained hemodynamically and electrically stable and will be treated medically in the meantime. He was given my personal cell number to call immediately with any questions, concerns or development of any symptoms. He was instructed to call 911 if any chest pain develops. Recommendations: -Discontinue Toprol. -Start Coreg 3.125 mg twice daily. -Discontinue Norvasc. -Start low-dose lisinopril at 5 mg daily. -Follow-up with our office on 05/30/2020. -Continue to restrict fluid intake to 1500 cc daily in the outpatient setting. -Low sodium diet, less than 1500 mg daily. -Daily weights and call the office immediately at [phone] if weight gain of 3 pounds overnight or 5 pounds in 1 week. (2) Elevated troponin I level Is this a current diagnosis for this admission?: Yes Plan: ACS versus type II ID, his troponin which is mildly elevated, he denied ischemic symptoms and his echocardiogram demonstrated a normal ejection fraction without gross regional wall motion abnormalities. His LHC back in 2006 only revealed 100% occluded PLB but other vessels were free of significant disease. Unfortunately he was fed breakfast this morning therefore nuclear stress test could not be accomplished. We discussed possibilities of keeping him here in t he hospital until stress test could be performed versus transfer him to [facility] for [facility] however the patient declined and wanted to go home. Luckily enough, he has remained asymptomatic since admission and both hemodynamically and electrically stable. Unfortunately he is self-pay however I have made arrangements for him to apply to our assistance program in our office on 05/30/2020. The patient was provided my personal cell number as well as the number and address to our office in [place]. Recommendations: -Please see medication changes in #1 above. -The patient will follow up in the office as scheduled. (3) Coronary artery disease Qualifiers: Associated angina: without angina Is this a current diagnosis for this admission?: Yes Plan: Please see above for details and recommendations. To summarize, the patient should go home on the following cardiovascular medications: -Carvedilol 3.125 mg p.o. twice daily instead of Toprol. -Lisinopril 5 mg daily. -Aspirin 81 mg daily. -Lipitor 80 mg nightly. -Lasix 20 mg daily. -Norvasc should be discontinued. Of note, we will hold off on Plavix given his low platelet count and lack of ischemic symptoms. We will repeat a CBC and a BMP in the office next week. (4) JANETTE (acute kidney injury) Is this a current diagnosis for this admission?: Yes Plan: Further management per hospitalist team. (5) CAP (community acquired pneumonia) Qualifiers: Laterality: right Lung location: unspecified part of lung Qualified Code(s): J18.9 - Pneumonia, unspecified organism Is this a current diagnosis for this admission?: Yes Plan: Further management per hospitalist team.
[2020-05-26] MEDS ORDERED: FUROSEMIDE 20 MG TABLET PO SCH (10:00)
--- NOTE | 2020-05-26 17:32 | PDOC DISCHARGE SUMMARY ---
Impression - Admit/DC Date/PCP Admission Date/Primary Care Provider: 05/22/20 16:50 DAPHNIE BUSTAMANTE Discharge Date: 05/26/20 - Discharge Diagnosis (1) Heart failure with preserved ejection fraction Is this a current diagnosis for this admission?: Yes (2) Elevated troponin I level Is this a current diagnosis for this admission?: Yes (3) Coronary artery disease Is this a current diagnosis for this admission?: Yes (4) Acute respiratory failure with hypoxia Is this a current diagnosis for this admission?: Yes (5) JANETTE (acute kidney injury) Is this a current diagnosis for this admission?: Yes (6) Obesity (BMI 30-39.9) Is this a current diagnosis for this admission?: Yes (7) Tobacco dependence Is this a current diagnosis for this admission?: Yes (8) Altered mental status Is this a current diagnosis for this admission?: Yes (9) Diabetes Is this a current diagnosis for this admission?: Yes - Assessment Summary: Overall significant improvement in patient presentation. po diuresis now. Stress test scheduled for tomorrow morning. Likely will discharge home following. - Additional Information Resuscitation Status: Full Code Discharge Diet: Cardiac, Diabetic Discharge Activity: Activity As Tolerated, Balance Activity w/Rest, Weigh Daily Referrals: DAPHNIE BUSTAMANTE MD [Primary Care Provider] - JOHANNY PEARSON MD [ACTIVE PROVISIONAL STAFF] - Prescriptions: Carvedilol [Coreg 3.125 mg Tablet] 3.125 mg PO Q12 #60 tablet Furosemide [Lasix 20 mg Tablet] 20 mg PO QAM #30 tablet Atorvastatin Calcium [Lipitor 80 mg Tablet] 80 mg PO QHS #30 tablet Nitroglycerin 0.4 mg SL Q5MP PRN #30 tab.subl PRN Reason: Lisinopril [Prinivil 5 mg Tablet] 5 mg PO DAILY #30 tablet Azithromycin [Zithromax 250 mg Tablet] 250 mg PO DAILY 3 Days #3 tablet Home Medications: Gabapentin [Neurontin] 800 mg PO TID 05/23/20 Ibuprofen [Motrin 800 mg Tablet] 800 mg PO Q8H PRN 05/23/20 Oxycodone HCl/Acetaminophen [Percocet 7.5-325 mg Tablet] 1 each PO BID 05/23/20 Pentoxifylline 400 mg PO BID 05/23/20 Aspirin [Aspirin 81 mg Chewable Tablet] 81 mg PO QHS tab.chew 05/26/20 Atorvastatin Calcium [Lipitor 80 mg Tablet] 80 mg PO QHS #30 tablet 05/26/20 Azithromycin [Zithromax 250 mg Tablet] 250 mg PO DAILY 3 Days #3 tablet 05/26/20 Carvedilol [Coreg 3.125 mg Tablet] 3.125 mg PO Q12 #60 tablet 05/26/20 Furosemide [Lasix 20 mg Tablet] 20 mg PO QAM #30 tablet 05/26/20 Lisinopril [Prinivil 5 mg Tablet] 5 mg PO DAILY #30 tablet 05/26/20 Nitroglycerin 0.4 mg SL Q5MP PRN #30 tab.subl 05/26/20 History of Present Illiness History of Present Illness: As per admitting HPI on 05/22/2020: "LIZETTE MUNIZ is a 59 year old male with a limited past medical history secondary to poor historian and poor healthcare utilization but from prior records known to have OH, cardiac cath with 1 stent, hypertension, diabetes mellitus, obesity, and tobacco dependence with continuous use who presented to the emergency department today via EMS with a complaint of right hip pain. Upon EMS arrival, they had found the patient hypoxic with an SPO2 of 83 on room air. Patient's reported that he had a sudden onset of shortness of breath and increased work of breathing today. On arrival to the emergency department, the patient denied all cold-like symptoms and stated that his current respiratory pattern was Chronic in nature and that his only complaint was right hip pain. Evaluation in the emergency department revealed low-grade temp of 99.3, mild tachycardia (HR 97), tachypnea (RR 24), and hypoxia on room air. CBC revealed hemoglobin 11.1, chemistry was notable for mild hyponatremia (130.2), acute renal insufficiency (creatinine 2.28, BUN 38), and urinalysis positive for blood and protein. ABG was notable for PaO2 of 46.9 while on 2 L/min via nasal cannula. Rapid Covid/influenza/RSV was negative. Chest x-ray showed a developing right lung opacity. Therefore, patient was provided 1 L normal saline, IV ceftriaxone and azithromycin for treatment of a community-acquired pneumonia. He was recommended for admission. The patient voiced interest in leaving AGAINST MEDICAL ADVICE and per nursing notes actually removed his IV and ambulated to the waiting room. He was encouraged to return to his room, and per nursing, agreed to stay. He was then medicated with IV Dilaudid and Ativan. Therefore at the time of my assessment, the patient was arousable to voice and tactile stimulation, able to confirm his name, place, and year but quickly would fall back to sleep and could not provide any further meaningful information. I did attempt to call his at the phone number listed in [employer] but there was no answer." Hospital Course Hospital Course: Heart failure with preserved ejection fraction On initial presentation: respiratory distress, hypoxia, tachycardia, hypertension, tachypnea, +3 pitting edema BLE, bilateral crackles, and JVD. - Lungs are clear to auscultation, on room air, without pitting edema prior to discharge Cardiology consulted, note reviewed in detail recommendations appreciated as discussed below. - Echocardiogram at [facility] on 05/23/2020: EF 55 to 60%. No gross regional wall motion abnormalities. Mild RVE. Mild LAE. Mild MR, mild TR. Moderate to severe pulmonary hypertension with pressures between 57 and 60 mmHg. No prior studies for comparison. - Restrict fluid intake, low-sodium diet, strict I's and O's, daily weights. -Daily weights and call the office immediately at [phone] if weight gain of 3 pounds overnight or 5 pounds in 1 week. 20mg lasix daily Discontinue Toprol Initiate Coreg 3.125 mg twice daily Discontinue Norvasc Initiate low-dose lisinopril 5 mg daily Nitro SL prn Elevated troponin I level Denies ischemic symptoms persistently over hospitalization course, denies prior to disposition. Unclear if demand mismatch ischemia in setting of CHF exacerbation and hypoxia or ACS event. - Troponin 0.128-> 0.319-> 0.229 - proBNP 1600 Cardiology is consulted, note reviewed in detail, recommendations as follows. - Stress test scheduled 05/26 (in the lieu of creatinine greater than 1.5). -Unfortunately unable to complete stress test today as patient received yulia akfast regardless of n.p.o. order in chart and n.p.o. sign on his door. Dr. Pearson with cardiology discussed patient's options at this time including transfer to [place] for left heart cath. Patient defers left heart cath and states that he wants to go home to be with his family for Deann. As patient has remained asymptomatic since admission and hemodynamically and electrolytes were stable patient okay for discharge today. Cardiac medications as addressed above. Scheduled for follow-up with Dr. Pearson in the outpatient setting on Wednesday 05/30 with plan for follow-up labs and visit. Patient is self-pay and may qualify for financial support to Dr. Pearson's office. Patient has been provided Dr. Pearson phone number and understands that he is available for contact. Continue daily aspirin and statin therapy. Coronary artery disease History of OH in 2006, underwent stenting [place] vessel at [facility]. - Records obtained and reviewed - Treatment as discussed above Per cardiology, hold Plavix given low platelet and lack of ischemic symptoms. Repeat CBC and BMP follow-up in his outpatient office next week. Acute respiratory failure with hypoxia Resolved at this time. Requiring no supplemental O2. Multifocal in nature, CHF exacerbation, less likely CAP. With significant improvement in O2 sats requirement with diuresis thus likely secondary to CHF exacerbation. - D. dimer is elevated, unfortunately, can not get CTA r/t renal function. (Lovenox therapy as discussed above) - Prior ABG shows hypoxia (paO2 46.9 on 2lpm). - CT Chest shows bilateral groundglass opacities throughout. Cnt As needed Duonebs. Avoid sedating medications in patient with hypoxia. Remaining management as above. JANETTE (acute kidney injury) Initial presentation patient was volume overloaded with pitting edema and crackles, this has since improved patient is without pitting edema and with lungs CTA today. - Likely secondary to acute CHF exacerbation. - Slight downward trend in creatinine; 2.28-> 2.29-> 2.13 -> 1.77 -> 1.82 - Unknown baseline. Transition to p.o. Lasix. Otherwise avoid nephrotoxic medications and renally dose were able. Follow-up chemistries. Altered mental status This resolved under previous providers care. He is A&Ox4 on my evaluation. Head CT negative for acute findings. This improved with treatment as above for CHF, likely secondary to hypoxia, continue treatment as above.. Diabetes Noted as new diagnosis by previous provider. Discussed with patient states monitoring history of diabetes diagnosis. Typically takes 90 units of Lantus at night. Blood sugars have been running in the 200s typically requiring 4 units sliding scale insulin with meals. Will initiate 10 units Lantus nightly in addition to sliding scale insulin. A1C 7.7% Patient is placed on a consistent carb diet. Accu-Cheks before meals and at bedtime with Humalog for sliding scale coverage. Hypoglycemia protocol in place. On discharge he is okay to resume home Lantus dose. Physical Exam Vital Signs: Temp Pulse Resp BP Pulse Ox 98.1 F 75 17 158/66 H 94 05/26/20 11:22 05/26/20 11:22 05/26/20 11:22 05/26/20 11:22 05/26/20 11:22 Intake & Output 05/25/20 05/26/20 05/27/20 06:59 06:59 06:59 Intake Total 1676 2410 Output Total 1750 Balance 1676 660 Weight 94 kg 90 kg Additional comments: General appearance: PRESENT: no acute distress, obese, well-developed, well- nourished, obese Respiratory exam: PRESENT: Clear lung sounds bilaterally, symmetrical and unlabored. On room air ABSENT: rales, rhonchi, wheezes Cardiovascular exam: PRESENT: RRR. ABSENT: diastolic murmur, rubs, systolic murmur Extremities exam: PRESENT: full ROM, no evidence of edema. ABSENT: calf tenderness, clubbing, pedal edema Musculoskeletal exam: PRESENT: ambulatory Neurological exam: PRESENT: alert, awake, oriented to person, oriented to place, oriented to time, oriented to situation, CN II-XII grossly intact. ABSENT: motor sensory deficit Psychiatric exam: PRESENT: normal mood Skin exam: PRESENT: dry, intact, warm. ABSENT: cyanosis, rash Results Laboratory Results: WBC 4.6 10^3/uL (4.0-10.5) 05/25/20 05:58 RBC 3.65 10^6/uL (4.35-5.55) L 05/25/20 05:58 Hgb 10.6 g/dL (13.5-17.0) L 05/25/20 05:58 Hct 30.9 % (37.9-51.0) L 05/25/20 05:58 MCV 85 fl (80-97) 05/25/20 05:58 MCH 29.1 pg (27.0-33.4) 05/25/20 05:58 MCHC 34.5 g/dL (32.0-36.0) 05/25/20 05:58 RDW 13.7 % (11.5-14.0) 05/25/20 05:58 Plt Count 112 10^3/uL (150-450) L 05/25/20 05:58 Lymph % (Auto) 10.0 % (13-45) L 05/22/20 11:47 [place] % (Auto) 8.2 % (3-13) 05/22/20 11:47 Eos % (Auto) 1.6 % (0-6) 05/22/20 11:47 Baso % (Auto) 1.0 % (0-2) 05/22/20 11:47 Absolute Neuts (auto) 5.7 10^3/uL (1.7-8.2) 05/22/20 11:47 Absolute Lymphs (auto) 0.7 10^3/uL (0.5-4.7) 05/22/20 11:47 Absolute Monos (auto) 0.6 10^3/uL (0.1-1.4) 05/22/20 11:47 Absolute Eos (auto) 0.1 10^3/uL (0.0-0.6) 05/22/20 11:47 Absolute Basos (auto) 0.1 10^3/uL (0.0-0.2) 05/22/20 11:47 Seg Neutrophils % 79.2 % (42-78) H 05/22/20 11:47 D-Dimer 1.49 ug/mL (0.00-0.50) H 05/22/20 11:47 Carbonic Acid 1.35 mmol/L (1.05-1.35) 05/22/20 13:12 HCO3/H2CO3 Ratio 18:1 05/22/20 13:12 ABG pH 7.36 (7.35-7.45) 05/22/20 13:12 ABG pCO2 44.9 mmHg (35-45) 05/22/20 13:12 ABG pO2 46.9 mmHg (80-100) L 05/22/20 13:12 ABG HCO3 24.9 mmol/L (20-24) H 05/22/20 13:12 ABG Total CO2 26.3 mmol/L (23-27) 05/22/20 13:12 ABG O2 Saturation 81.1 % (94-98) L 05/22/20 13:12 ABG Base Excess -0.8 mmol/L 05/22/20 13:12 FiO2 2L 05/22/20 13:12 Sodium 139.2 mmol/L (137-145) 05/26/20 06:13 Potassium 4.1 mmol/L (3.6-5.0) 05/26/20 06:13 Chloride 104 mmol/L (98-107) 05/26/20 06:13 Carbon Dioxide 25 mmol/L (22-30) 05/26/20 06:13 Anion Gap 10 (5-19) 05/26/20 06:13 BUN 33 mg/dL (7-20) H 05/26/20 06:13 Creatinine 1.61 mg/dL (0.52-1.25) H 05/26/20 06:13 Est GFR ( Amer) 53 (>60) L 05/26/20 06:13 Est GFR (MDRD) Non-Af 44 (>60) L 05/26/20 06:13 Glucose 186 mg/dL (75-110) H 05/26/20 06:13 POC Glucose 194 mg/dL (70-110) H 05/26/20 06:12 Hemoglobin A1c % 7.7 % (4.7-6.0) H 05/23/20 05:53 Calcium 9.0 mg/dL (8.4-10.2) 05/26/20 06:13 Magnesium 2.0 mg/dL (1.6-2.3) 05/25/20 05:58 Ferritin 103.00 ng/mL (17.9-464.0) 05/22/20 18:08 Total Bilirubin 0.7 mg/dL (0.2-1.3) 05/22/20 11:47 Direct Bilirubin 0.1 mg/dL (0.0-0.4) 05/22/20 11:47 Neonat Total Bilirubin Not Reportable 05/22/20 11:47 Neonat Direct Bilirubin Not Reportable 05/22/20 11:47 Neonat Indirect Bili Not Reportable 05/22/20 11:47 AST 22 U/L (17-59) 05/22/20 11:47 ALT 14 U/L (<50) 05/22/20 11:47 Alkaline Phosphatase 60 U/L (38-126) 05/22/20 11:47 Lactate Dehydrogenase 246 U/L (120-246) 05/22/20 18:08 Creatine Kinase 351 U/L (55-170) H 05/22/20 18:08 Troponin I 0.229 ng/mL 05/23/20 05:53 C-Reactive Protein 30.9 mg/L (<10.0) H 05/22/20 18:08 NT-Pro-B Natriuret Pep 2250 pg/mL (<125) H 05/24/20 04:42 Total Protein 6.5 g/dL (6.3-8.2) 05/22/20 11:47 Albumin 3.6 g/dL (3.5-5.0) 05/22/20 11:47 Triglycerides 62 mg/dL (<150) 05/23/20 05:53 Cholesterol 111.97 mg/dL (0-200) 05/23/20 05:53 LDL Cholesterol Direct 53 mg/dL (<100) 05/23/20 05:53 VLDL Cholesterol 12.0 mg/dL (10-31) 05/23/20 05:53 HDL Cholesterol 45 mg/dL (>40) 05/23/20 05:53 TSH 0.39 uIU/mL (0.47-4.68) L 05/23/20 05:53 Urine Color YELLOW 05/25/20 09:56 Urine Appearance CLEAR 05/25/20 09:56 Urine pH 7.0 (5.0-9.0) 05/25/20 09:56 Ur Specific [place] 1.014 05/25/20 09:56 Urine Protein >=500 mg/dL (NEGATIVE) H 05/25/20 09:56 Urine Glucose (UA) 50 mg/dL (NEGATIVE) H 05/25/20 09:56 Urine Ketones NEGATIVE mg/dL (NEGATIVE) 05/25/20 09:56 Urine Blood MODERATE (NEGATIVE) H 05/25/20 09:56 Urine Nitrite NEGATIVE (NEGATIVE) 05/25/20 09:56 Urine Bilirubin NEGATIVE (NEGATIVE) 05/25/20 09:56 Urine Urobilinogen 4.0 mg/dL (<2.0) H 05/25/20 09:56 Ur Leukocyte Esterase NEGATIVE (NEGATIVE) 05/25/20 09:56 Urine WBC (Auto) 1 /HPF 05/25/20 09:56 Urine RBC (Auto) 10 /HPF 05/25/20 09:56 Urine Bacteria (Auto) TRACE /HPF 05/25/20 09:56 Urine Mucus (Auto) RARE /LPF 05/25/20 09:56 Urine Ascorbic Acid NEGATIVE (NEGATIVE) 05/25/20 09:56 Influenza A (Rapid) Cancelled 05/22/20 13:12 Influenza A (RT-PCR) NEGATIVE (NEGATIVE) 05/22/20 13:12 Influenza B (Rapid) Cancelled 05/22/20 13:12 Influenza B (RT-PCR) NEGATIVE (NEGATIVE) 05/22/20 13:12 RSV (RT-PCR) NEGATIVE (NEGATIVE) 05/22/20 13:12 SARS-CoV-2 Rap RNA(RT-PCR) NEGATIVE (NEGATIVE) 05/22/20 13:12 05/22/20 05/22/20 05/23/20 11:47 11:47 01:10 Troponin I 0.128 0.319 NT-Pro-B Natriuret Pep 1600 H 05/23/20 05/24/20 05:53 04:42 Troponin I 0.229 NT-Pro-B Natriuret Pep 2250 H Impressions: Chest CT 05/22/20 00:00 IMPRESSION: EXTENSIVE GROUND-GLASS OPACITIES THROUGHOUT BOTH LUNGS CONCERNING FOR PNEUMONIA, POSSIBLY COVID- 19. SMALL PLEURAL EFFUSIONS. Head CT 05/22/20 00:00 IMPRESSION: NORMAL BRAIN CT WITHOUT CONTRAST. EVIDENCE OF ACUTE STROKE: NO. Chest X-Ray 05/22/20 11:12 IMPRESSION: DEVELOPING INFILTRATE IN THE RIGHT LUNG. Plan Plan of Treatment: Pneumonia - azithromycin 250 mg to be taken once daily for the next 3 days. Cardiac medication changes -Carvedilol 3.125 mg by mouth twice daily -Lisinopril 5 mg daily -Aspirin 81 mg daily -Lipitor 80 mg nightly -Lasix 20 mg daily -Nitroglycerin 0.4 sublingual as needed for chest pain stop taking the following medications: Metoprolol and Norvasc. Monitor your weight daily. Limit fluid intake to 1500 cc daily. Limit your sodium intake to less than [address] Pearson immediately if you experience a weight gain of 3 pounds overnight or 5 pounds in 1 week. Follow-up with Dr. Pearson in his office on 05/30/2020. Stroke Is this a Stroke Patient?: No Acute Heart Failure Is this a Heart Failure Patient?: Yes Documentation of LVEF assessment?: Yes LVEF: LVEF Greater Than 40% Anticoagulant Therapy: Yes Discharged on Evidence-Based Beta Blockers: Yes Discharged on ARNI?: No-Document Contraindications - ACEI use Reason(s) not discharged on ARNI: ACEI use within the prior 36 hours Discharged on ARB?: No-document contraindications - ACEI Reason(s) not Discharged on ARB: Other - ACEI ARB Reason - Other: ACEI use Discharged on ACEI?: Yes For LVEF <35%, discharged on Aldosterone Antagonist?: N/A (LVEF > or = 35%)
[2020-05-26 20:22] VITALS: BP 158/66
== END 2020-05-26 11:47 | disposition home or self-care (01) | DRG 291 ==
LOC: ER 11:08 → EH 16:50 → 3S 19:56 → 4W 05-23 14:10 → 4S 05-25 15:21
PROVIDERS: ADMIT Internal Medicine; ATTEND Physician Assistant
DX: I11.0 Hypertensive heart disease with heart failure (principal); J96.01 Acute respiratory failure with hypoxia; I50.31 Acute diastolic (congestive) heart failure; E87.1 Hypo-osmolality and hyponatremia; N17.9 Acute kidney failure, unspecified; I27.20 Pulmonary hypertension, unspecified; E11.9 Type 2 diabetes mellitus without complications; E66.9 Obesity, unspecified; F17.200 Nicotine dependence, unspecified, uncomplicated; M25.551 Pain in right hip; I36.1 Nonrheumatic tricuspid (valve) insufficiency; I25.10 Atherosclerotic heart disease of native coronary artery without angina pectoris; M19.90 Unspecified osteoarthritis, unspecified site; R79.1 Abnormal coagulation profile; R41.0 Disorientation, unspecified; R77.8 Other specified abnormalities of plasma proteins; Z68.39 Body mass index [BMI] 39.0-39.9, adult; Z11.59 Encounter for screening for other viral diseases; I25.2 Old myocardial infarction; Z95.5 Presence of coronary angioplasty implant and graft; Z79.82 Long term (current) use of aspirin; Z79.899 Other long term (current) drug therapy
CPT/HCPCS: 36415; 70450; 71045; 71250; 80048; 80053; 80061; 81001; 82550; 82728; 82803; 82962; 83036; 83615; 83735; 83880; 84443; 84484; 85025; 85027; 85379; 86140; 87040; 93005; 93010; 93306; 94660; 96361; 96374; 96375; 99285; 0241U; C9803; J0696; J1100; J1170; J1650; J1815; J1940; J2060; J3490; J7030

== ENCOUNTER → 2020-06-22 | Outpatient (CLI) | payer SELFPAY ==
--- NOTE | 2020-06-22 12:15 | RADIOLOGY REPORT (SQ) ---
EXAM DESCRIPTION: FEMUR RIGHT IMAGES COMPLETED DATE/TIME: 06/22/2020 9:16 am REASON FOR STUDY: PAIN IN R HIP M25.551 PAIN IN RIGHT HIP COMPARISON: None. NUMBER OF VIEWS: Two views. TECHNIQUE: Two radiographic images acquired of the right femur to include hip and knee in at least o ne projection. LIMITATIONS: None. FINDINGS: MINERALIZATION: Normal. BONES: No acute fracture or dislocation. No worrisome bone lesions. No significant osteophytes. SOFT TISSUES: No obvious swelling or foreign body. OTHER: No other significant finding. IMPRESSION: NEGATIVE STUDY OF THE RIGHT FEMUR. NO EXPLANATION FOR PAIN. TECHNICAL DOCUMENTATION: JOB ID: [id number] 2010 [employer]- All Rights Reserved Reading location - IP/workstation name: [email or web address]
== END ==
LOC: RAD 08:55
PROVIDERS: ATTEND Internal Medicine
DX: M25.551 Pain in right hip (principal)